=== PATIENT | female | born 1955 | race Caucasian/White ===

== ENCOUNTER 2016-12-08 16:42 | Emergency (ER) | payer OTHER, MEDICAID ==
[~2016-12-08] VITALS: Ht 167.6 cm; Wt 90.0 kg
[~2016-12-08 16:42] MED LIST: ALBU8.5H3 IH; AMLO-512 PO; ASPI81 PO; CARV6 PO; FURO20 PO; INSLAN SQ; INSU100C3 SQ; ISOS60TA4 PO; LEVO100T4 PO; LISI20TA PO; METF500T4 PO; MORP15 PO; MULT-1238 PO; NITR2.5 PO; POTA8TAB4 PO; PROM25 PO; RANO500T3 PO; SIMV40 PO; TICA90TA PO; VITAD1000 PO
[2016-12-08 17:20] LABS: BASOPHILS % (AUTO) 1.2 % (0.0-2.0); EOSINOPHILS % (AUTO) 5.8 % (1.0-6.0); HEMATOCRIT 27.1 % (36-46); HEMOGLOBIN 8.6 g/dL (12.0-16.0); LYMPHOCYTES # (AUTO) 1.5 K/uL (1.0-4.8); LYMPHOCYTES % (AUTO) 24.7 % (22.0-44.0); MEAN CORPUSCULAR HEMOGLOBIN 26.7 pg (26.0-34.0); MEAN CORPUSCULAR HGB CONC 31.6 G/dL (31.0-37.0); MEAN CORPUSCULAR VOLUME 85 fL (80-100); MONOCYTES # (AUTO) 0.3 K/uL (0.1-1.0); MONOCYTES % (AUTO) 5.8 % (2.0-9.0); NEUTROPHILS # (AUTO) 3.7 K/uL (1.8-7.7); NEUTROPHILS % (AUTO) 62.5 % (40.0-70.0); PLATELET COUNT (AUTO) 284 K/uL (150-450); RBC MORPHOLOGY COMMENT ABNORMAL RBC MORPH; RED BLOOD CELL COUNT(AUTO) 3.21 MIL/uL (4.00-5.20); RED CELL DISTRIBUTION WIDTH 17.5 % (11.5-14.5)
[2016-12-08 17:33] LABS: ANION GAP 5 mmol/L (8-16); CALCIUM, TOTAL 8.5 mg/dL (8.8-10.5); CARBON DIOXIDE 29 mmol/L (22-29); CHLORIDE 101 mmol/L (98-107); CREATININE 1.12 mg/dL (0.60-1.30); GLOMERULAR FILTR. RATE CALC 49 mL/min (>60); POTASSIUM 3.8 mmol/L (3.5-5.1); SODIUM SERUM 135 mmol/L (136-145); UREA NITROGEN, BLOOD 14 mg/dL (7-18)
[2016-12-08 17:39] LABS: ALANINE AMINOTRANSFERASE 7 U/L (12-78); ALBUMIN 2.7 g/dL (3.4-5.0); ASPARTATE AMINOTRANSFERASE 10 U/L (15-37); BILIRUBIN,TOTAL 0.2 mg/dL (0.1-1.0); CREATINE KINASE, TOTAL 49 U/L (26-192); TOTAL PROTEIN, SERUM 6.2 g/dL (6.4-8.2)
[2016-12-08 17:42] LABS: B-TYPE NATRIURETIC PEPTIDE 318 pg/mL (0-100)
[2016-12-08] MEDS: KETOROLAC TROMETHAMINE 30 MG/ML VIAL IVP ONE ×2 (18:38→18:41)
[2016-12-08] MEDS ORDERED: INSULIN REGULAR, HUMAN 100 UNITS/ML IVP ONE (18:45)
[2016-12-08] MEDS ORDERED: SODIUM CHLORIDE 0.9% 1,000 ML IV ONE (18:45)
[2016-12-08] MEDS ORDERED: SODIUM CHLORIDE 0.9% 500 ML IV ONE (19:15)
[2016-12-08 19:22] LABS: GLUCOSE,POINT OF CARE 235 MG/DL (70-110)
[2016-12-08 19:54] VITALS: BP 132/78
== END 2016-12-08 19:58 | disposition home or self-care (01) ==
LOC: EMS 16:44
DX: D64.9 Anemia, unspecified (principal); E11.65 Type 2 diabetes mellitus with hyperglycemia; I11.0 Hypertensive heart disease with heart failure; I50.9 Heart failure, unspecified; I25.119 Atherosclerotic heart disease of native coronary artery with unspecified angina pectoris; E78.00 Pure hypercholesterolemia, unspecified; I25.2 Old myocardial infarction; E11.29 Type 2 diabetes mellitus with other diabetic kidney complication; N28.9 Disorder of kidney and ureter, unspecified; F12.90 Cannabis use, unspecified, uncomplicated; Z95.1 Presence of aortocoronary bypass graft; Z95.0 Presence of cardiac pacemaker; Z91.041 Radiographic dye allergy status; Z91.018 Allergy to other foods; Z88.8 Allergy status to other drugs, medicaments and biological substances; Z79.82 Long term (current) use of aspirin; Z79.4 Long term (current) use of insulin
CPT/HCPCS: 36415; 71010; 80053; 82550; 82962; 83880; 84484; 85025; 93005; 96361; 96374; 99285; J1815; J1885; J7030; J7040

== ENCOUNTER 2016-12-13 07:01 | Inpatient (IN) | payer MEDICAID, MEDICARE, OTHER ==
[~2016-12-13] VITALS: Ht 167.6 cm; Wt 83.4 kg
[~2016-12-13 07:01] MED LIST changes: +SIMV-261 PO; -SIMV40 PO
[2016-12-13] MEDS ORDERED: APIX2.5T PO (07:14)
[2016-12-13] MEDS ORDERED: ONDANSETRON HCL 4 MG/2 ML VIAL IVP ONE (07:30)
[2016-12-13] MEDS ORDERED: SODIUM CHLORIDE 0.9% 1,000 ML IV ONE (07:30)
[2016-12-13 07:48] LABS: BASOPHILS % (AUTO) 0.6 % (0.0-2.0); EOSINOPHILS % (AUTO) 4.8 % (1.0-6.0); HEMATOCRIT 31.3 % (36-46); LYMPHOCYTES # (AUTO) 1.5 K/uL (1.0-4.8); LYMPHOCYTES % (AUTO) 16.8 % (22.0-44.0); MEAN CORPUSCULAR HEMOGLOBIN 26.6 pg (26.0-34.0); MEAN CORPUSCULAR HGB CONC 31.9 G/dL (31.0-37.0); MEAN CORPUSCULAR VOLUME 83 fL (80-100); MONOCYTES # (AUTO) 0.5 K/uL (0.1-1.0); MONOCYTES % (AUTO) 5.4 % (2.0-9.0); NEUTROPHILS # (AUTO) 6.3 K/uL (1.8-7.7); NEUTROPHILS % (AUTO) 72.4 % (40.0-70.0); PLATELET COUNT (AUTO) 325 K/uL (150-450); RED BLOOD CELL COUNT(AUTO) 3.75 MIL/uL (4.00-5.20); WHITE BLOOD COUNT (AUTO) 8.7 K/uL (4.5-11.0)
[2016-12-13 07:58] LABS: PROTHROMBIN TIME 10.7 SEC (9.4-11.6)
[2016-12-13 08:03] LABS: ALANINE AMINOTRANSFERASE 11 U/L (12-78); ALBUMIN 2.8 g/dL (3.4-5.0); ANION GAP 9 mmol/L (8-16); ASPARTATE AMINOTRANSFERASE < 5 U/L (15-37); BILIRUBIN,TOTAL 0.2 mg/dL (0.1-1.0); CALCIUM, TOTAL 8.6 mg/dL (8.8-10.5); CARBON DIOXIDE 26 mmol/L (22-29); CHLORIDE 100 mmol/L (98-107); GLOMERULAR FILTR. RATE CALC 56 mL/min (>60); POTASSIUM 3.2 mmol/L (3.5-5.1); SODIUM SERUM 135 mmol/L (136-145); TOTAL PROTEIN, SERUM 6.6 g/dL (6.4-8.2); UREA NITROGEN, BLOOD 17 mg/dL (7-18)
[2016-12-13 08:27] LABS: GLUCOSE,POINT OF CARE 388 MG/DL (70-110)
[2016-12-13] MEDS ORDERED: INSULIN DETEMIR 100 UNITS/ML SQ ONE (08:30)
[2016-12-13] MEDS ORDERED: MAG HYDROX/AL HYDROX/SIMETH ES 30 ML SUSPENSION UDCUP PO ONE (08:45)
[2016-12-13] MEDS ORDERED: PANTOPRAZOLE SODIUM 40 MG/VIAL IVP ONE (08:45)
[2016-12-13] MEDS ORDERED: MORPHINE SULFATE 4 MG/ML SYRINGE IVP ONE (08:45)
[2016-12-13 09:35] LABS: APPEARANCE,URINE CLEAR (CLEAR); GLUCOSE, URINE (UA) >=1000 mg/dL (NEGATIVE); KETONES,URINE NEGATIVE (NEGATIVE); LEUKOCYTE ESTERASE ,URINE NEGATIVE (NEGATIVE); OCCULT BLOOD,URINE SMALL (NEGATIVE); PROTEIN,URINE SEE CONFIRM (NEGATIVE)
[2016-12-13 09:39] LABS: ADD UA MICROSCOPIC YES
[2016-12-13 09:41] LABS: SULFOSALICYLIC ACID,URINE 4+ (Negative)
[2016-12-13 09:42] LABS: RENAL EPITHELIAL CELLS,URINE Few /LPF (None Seen); SQUAMOUS EPITHELIAL CELL,UR Few /LPF (None Seen)
[2016-12-13] MEDS ORDERED: CefTRIAXone 1 GM/DEXTROSE 50 ML IV ONE (11:00)
[2016-12-13] MEDS ORDERED: PROMETHAZINE HCL 25 MG/ML VIAL IM ONE (11:15)
[2016-12-13 13:16] LABS: GLUCOSE,POINT OF CARE 269 MG/DL (70-110)
[2016-12-13] MEDS ORDERED: POTASSIUM CHLORIDE 20 MEQ ER TABLET PO ONE (13:45)
[2016-12-13 14:15] VITALS: BP 179/85
[2016-12-13] MEDS ORDERED: NITROGLYCERIN 2.5 MG PO PRN ×2 (14:15→21:30)
[2016-12-13] MEDS ORDERED: DEXTROSE 50%-WATER 25 GM/50 ML SYRINGE IVP PRN (14:30)
[2016-12-13] MEDS: CHOLECALCIFEROL (VIT D3) 1,000 UNITS TABLET PO SCH (15:03)
[2016-12-13] MEDS: CARVEDILOL 6.25 MG TABLET PO SCH (15:03)
[2016-12-13] MEDS: ASPIRIN 81 MG CHEWABLE TABLET PO SCH (15:03)
[2016-12-13] MEDS: FUROSEMIDE 20 MG TABLET PO SCH (15:03)
[2016-12-13] MEDS: ISOSORBIDE MONONITRATE 60 MG ER TABLET PO SCH (15:03)
[2016-12-13] MEDS: MORPHINE SULFATE 15 MG ER TABLET PO SCH ×2 (15:04→22:50)
[2016-12-13] MEDS: POTASSIUM CHLORIDE 8 MEQ ER TABLET PO SCH (15:04)
[2016-12-13 15:35] VITALS: BP 178/73
[2016-12-13] MEDS: MORPHINE SULFATE 2 MG/ML SYRINGE IVP PRN (16:14)
[2016-12-13] MEDS: RANOLAZINE 500 MG SR TABLET PO SCH ×2 (16:28→22:50)
[2016-12-13] MEDS ORDERED: 0.9% SODIUM CHLORIDE 10 ML SYRINGE IVP PRN (16:45)
[2016-12-13] MEDS: MetFORMIN HCL 500 MG TABLET PO SCH (17:40)
[2016-12-13 17:41] LABS: GLUCOSE COMMENT 1 Received Meds; GLUCOSE,POINT OF CARE 276 MG/DL (70-110)
[2016-12-13] MEDS: INSULIN ASPART 100 UNITS/ML SQ PRN ×2 (17:41→20:40)
[2016-12-13] MEDS: ALBUTEROL SULFATE HFA 90 MCG/PUFF 8 GM INHALER IH SCH ×2 (17:42→22:50)
[2016-12-13 19:35] VITALS: BP 123/55
[2016-12-13] MEDS: SIMVASTATIN 40 MG TABLET PO SCH (20:40)
[2016-12-13] MEDS: APIXABAN 2.5 MG TABLET PO SCH (20:40)
[2016-12-13 23:05] VITALS: BP 111/74
[2016-12-14 02:06] LABS: GLUCOSE COMMENT 1 Received Meds; GLUCOSE,POINT OF CARE 248 MG/DL (70-110)
[2016-12-14 05:07] VITALS: BP 127/67
[2016-12-14] MEDS: INSULIN ASPART 100 UNITS/ML SQ PRN ×3 (05:50→21:56)
[2016-12-14] MEDS: ALBUTEROL SULFATE HFA 90 MCG/PUFF 8 GM INHALER IH SCH ×3 (05:51→18:00)
[2016-12-14] MEDS: LEVOTHYROXINE SODIUM 100 MCG TABLET PO SCH (06:30)
[2016-12-14] MEDS: MORPHINE SULFATE 15 MG ER TABLET PO SCH ×2 (07:54→20:56)
[2016-12-14] MEDS: PROMETHAZINE HCL 25 MG TABLET PO PRN ×2 (07:54→19:05)
[2016-12-14 08:03] VITALS: BP 140/70
[2016-12-14 08:16] LABS: GLUCOSE COMMENT 1 Received Meds; GLUCOSE,POINT OF CARE 211 MG/DL (70-110)
[2016-12-14] MEDS: MORPHINE SULFATE 2 MG/ML SYRINGE IVP PRN ×3 (09:54→19:05)
[2016-12-14] MEDS: MetFORMIN HCL 500 MG TABLET PO SCH ×2 (10:34→18:00)
[2016-12-14] MEDS: MULTIVITAMINS, THERAPEUTIC TABLET PO SCH (10:34)
[2016-12-14] MEDS: ISOSORBIDE MONONITRATE 60 MG ER TABLET PO SCH (10:34)
[2016-12-14] MEDS: ASPIRIN 81 MG CHEWABLE TABLET PO SCH (10:34)
[2016-12-14] MEDS: FUROSEMIDE 20 MG TABLET PO SCH (10:34)
[2016-12-14] MEDS: CARVEDILOL 6.25 MG TABLET PO SCH (10:34)
[2016-12-14] MEDS: POTASSIUM CHLORIDE 8 MEQ ER TABLET PO SCH (10:34)
[2016-12-14] MEDS: RANOLAZINE 500 MG SR TABLET PO SCH ×2 (10:35→20:56)
[2016-12-14] MEDS: APIXABAN 2.5 MG TABLET PO SCH (10:36)
[2016-12-14] MEDS: CHOLECALCIFEROL (VIT D3) 1,000 UNITS TABLET PO SCH (10:37)
[2016-12-14 11:29] LABS: BASOPHILS % (AUTO) 0.4 % (0.0-2.0); EOSINOPHILS % (AUTO) 6.1 % (1.0-6.0); HEMATOCRIT 30.8 % (36-46); HEMOGLOBIN 9.7 g/dL (12.0-16.0); LYMPHOCYTES # (AUTO) 1.9 K/uL (1.0-4.8); LYMPHOCYTES % (AUTO) 21.6 % (22.0-44.0); MEAN CORPUSCULAR HEMOGLOBIN 26.5 pg (26.0-34.0); MEAN CORPUSCULAR HGB CONC 31.5 G/dL (31.0-37.0); MEAN CORPUSCULAR VOLUME 84 fL (80-100); MONOCYTES # (AUTO) 0.4 K/uL (0.1-1.0); NEUTROPHILS # (AUTO) 5.8 K/uL (1.8-7.7); NEUTROPHILS % (AUTO) 66.9 % (40.0-70.0); PLATELET COUNT (AUTO) 306 K/uL (150-450); RED BLOOD CELL COUNT(AUTO) 3.65 MIL/uL (4.00-5.20); RED CELL DISTRIBUTION WIDTH 17.3 % (11.5-14.5); WHITE BLOOD COUNT (AUTO) 8.6 K/uL (4.5-11.0)
[2016-12-14 11:39] VITALS: BP 161/79
[2016-12-14 11:41] LABS: ALBUMIN 2.5 g/dL (3.4-5.0); BILIRUBIN,TOTAL 0.3 mg/dL (0.1-1.0); CALCIUM, TOTAL 8.4 mg/dL (8.8-10.5); CREATININE 0.95 mg/dL (0.60-1.30); POTASSIUM 3.8 mmol/L (3.5-5.1); TOTAL PROTEIN, SERUM 6.1 g/dL (6.4-8.2)
[2016-12-14 14:17] LABS: GLUCOSE COMMENT 1 Received Meds; GLUCOSE,POINT OF CARE 247 MG/DL (70-110)
[2016-12-14] MEDS: METOCLOPRAMIDE HCL 10 MG TABLET PO SCH ×2 (16:00→20:57)
[2016-12-14 16:14] VITALS: BP 143/60
[2016-12-14 17:37] LABS: GLUCOSE COMMENT 1 Received Meds; GLUCOSE,POINT OF CARE 192 MG/DL (70-110)
[2016-12-14] MEDS: SIMVASTATIN 40 MG TABLET PO SCH (20:57)
[2016-12-14 23:47] VITALS: BP 138/62
[2016-12-15] MEDS: MORPHINE SULFATE 2 MG/ML SYRINGE IVP PRN ×4 (02:28→17:31)
[2016-12-15 04:46] VITALS: BP 123/73
[2016-12-15 05:07] LABS: GLUCOSE COMMENT 1 Post Meal; GLUCOSE,POINT OF CARE 273 MG/DL (70-110)
[2016-12-15] MEDS: ALBUTEROL SULFATE HFA 90 MCG/PUFF 8 GM INHALER IH SCH ×4 (06:00→17:32)
[2016-12-15 06:17] LABS: BASOPHILS % (AUTO) 0.7 % (0.0-2.0); EOSINOPHILS % (AUTO) 6.7 % (1.0-6.0); HEMATOCRIT 27.3 % (36-46); HEMOGLOBIN 8.5 g/dL (12.0-16.0); LYMPHOCYTES % (AUTO) 28.5 % (22.0-44.0); MEAN CORPUSCULAR HEMOGLOBIN 26.2 pg (26.0-34.0); MEAN CORPUSCULAR HGB CONC 31.2 G/dL (31.0-37.0); MEAN CORPUSCULAR VOLUME 84 fL (80-100); MONOCYTES # (AUTO) 0.5 K/uL (0.1-1.0); MONOCYTES % (AUTO) 6.8 % (2.0-9.0); NEUTROPHILS % (AUTO) 57.3 % (40.0-70.0); PLATELET COUNT (AUTO) 264 K/uL (150-450); RED BLOOD CELL COUNT(AUTO) 3.24 MIL/uL (4.00-5.20); RED CELL DISTRIBUTION WIDTH 17.1 % (11.5-14.5)
[2016-12-15 06:31] LABS: HEMOGLOBIN A1C 10.1 % (4.5-6.2)
[2016-12-15] MEDS: LEVOTHYROXINE SODIUM 100 MCG TABLET PO SCH (06:49)
[2016-12-15] MEDS: INSULIN ASPART 100 UNITS/ML SQ PRN ×2 (06:51→21:19)
[2016-12-15 07:02] LABS: ALBUMIN 2.2 g/dL (3.4-5.0); BILIRUBIN,TOTAL 0.2 mg/dL (0.1-1.0); CALCIUM, TOTAL 8.5 mg/dL (8.8-10.5); CHOL/HDL RATIO 4.9 (3.9-5.7); CREATININE 1.06 mg/dL (0.60-1.30); MAGNESIUM 1.5 mg/dL (1.80-2.40); POTASSIUM 3.8 mmol/L (3.5-5.1); TOTAL PROTEIN, SERUM 5.4 g/dL (6.4-8.2)
[2016-12-15 07:26] LABS: GLUCOSE COMMENT 1 Received Meds; GLUCOSE,POINT OF CARE 208 MG/DL (70-110)
[2016-12-15 08:04] VITALS: BP 122/88
[2016-12-15] MEDS: ASPIRIN 81 MG CHEWABLE TABLET PO SCH (08:14)
[2016-12-15] MEDS: RANOLAZINE 500 MG SR TABLET PO SCH ×2 (08:14→21:12)
[2016-12-15] MEDS: METOCLOPRAMIDE HCL 10 MG TABLET PO SCH ×3 (08:14→21:12)
[2016-12-15] MEDS: FUROSEMIDE 20 MG TABLET PO SCH (08:14)
[2016-12-15] MEDS: ISOSORBIDE MONONITRATE 60 MG ER TABLET PO SCH (08:14)
[2016-12-15] MEDS: CHOLECALCIFEROL (VIT D3) 1,000 UNITS TABLET PO SCH (08:14)
[2016-12-15] MEDS: MetFORMIN HCL 500 MG TABLET PO SCH ×2 (08:14→16:36)
[2016-12-15] MEDS: MULTIVITAMINS, THERAPEUTIC TABLET PO SCH (08:15)
[2016-12-15] MEDS: POTASSIUM CHLORIDE 8 MEQ ER TABLET PO SCH (08:15)
[2016-12-15] MEDS: CARVEDILOL 6.25 MG TABLET PO SCH (08:17)
[2016-12-15 08:27] LABS: RBC MORPHOLOGY COMMENT ABNORMAL RBC MORPH
[2016-12-15] MEDS: MORPHINE SULFATE 15 MG ER TABLET PO SCH ×2 (09:53→21:13)
[2016-12-15 11:26] VITALS: BP 141/63
[2016-12-15] MEDS ORDERED: MAGNESIUM SULFATE 3 GM in DEXTROSE 5%-WATER 100 ML IV ONE (13:45)
[2016-12-15] MEDS ORDERED: SODIUM CHLORIDE 0.9% 250 ML IV ONE (14:33)
[2016-12-15 15:34] VITALS: BP 104/45
[2016-12-15 16:42] LABS: GLUCOSE COMMENT 1 Received Meds; GLUCOSE,POINT OF CARE 351 MG/DL (70-110)
[2016-12-15 19:15] VITALS: BP 107/54
[2016-12-15] MEDS: SIMVASTATIN 40 MG TABLET PO SCH (21:12)
[2016-12-15 23:14] VITALS: BP 112/57
[2016-12-16 01:52] LABS: GLUCOSE COMMENT 1 Received Meds; GLUCOSE,POINT OF CARE 164 MG/DL (70-110)
[2016-12-16] MEDS: MORPHINE SULFATE 2 MG/ML SYRINGE IVP PRN ×2 (02:33→06:33)
[2016-12-16 04:30] VITALS: BP 150/69
[2016-12-16] MEDS: ALBUTEROL SULFATE HFA 90 MCG/PUFF 8 GM INHALER IH SCH ×3 (06:00→08:14)
[2016-12-16 06:07] LABS: GLUCOSE,POINT OF CARE 156 MG/DL (70-110)
[2016-12-16] MEDS: LEVOTHYROXINE SODIUM 100 MCG TABLET PO SCH (06:10)
[2016-12-16] MEDS: INSULIN ASPART 100 UNITS/ML SQ PRN (06:14)
[2016-12-16 07:25] VITALS: BP 157/59
[2016-12-16] MEDS: MetFORMIN HCL 500 MG TABLET PO SCH (08:12)
[2016-12-16] MEDS: RANOLAZINE 500 MG SR TABLET PO SCH (09:20)
[2016-12-16] MEDS: CARVEDILOL 6.25 MG TABLET PO SCH (09:20)
[2016-12-16] MEDS: MULTIVITAMINS, THERAPEUTIC TABLET PO SCH (09:21)
[2016-12-16] MEDS: ASPIRIN 81 MG CHEWABLE TABLET PO SCH (09:21)
[2016-12-16] MEDS: CHOLECALCIFEROL (VIT D3) 1,000 UNITS TABLET PO SCH (09:21)
[2016-12-16] MEDS: POTASSIUM CHLORIDE 8 MEQ ER TABLET PO SCH (09:21)
[2016-12-16] MEDS: MORPHINE SULFATE 15 MG ER TABLET PO SCH (09:21)
[2016-12-16] MEDS: ISOSORBIDE MONONITRATE 60 MG ER TABLET PO SCH (09:21)
[2016-12-16] MEDS: FUROSEMIDE 20 MG TABLET PO SCH (09:21)
[2016-12-16] MEDS: METOCLOPRAMIDE HCL 10 MG TABLET PO SCH (09:21)
[2016-12-17] MEDS ORDERED: ROSUVASTATIN CALCIUM 20 MG TABLET PO SCH (09:00)
== END 2016-12-16 13:00 | disposition left against medical advice (07) | DRG 206 ==
LOC: EMS 07:03 → 6N 12:50 → 3EI 12:50 → 6N 13:54
PROVIDERS: ADMIT Family Medicine; ATTEND Family Medicine
DX: M94.0 Chondrocostal junction syndrome [Tietze] (principal); E44.1 Mild protein-calorie malnutrition; I50.32 Chronic diastolic (congestive) heart failure; F11.20 Opioid dependence, uncomplicated; E11.43 Type 2 diabetes mellitus with diabetic autonomic (poly)neuropathy; Z86.73 Personal history of transient ischemic attack (TIA), and cerebral infarction without residual deficits; K31.84 Gastroparesis; I11.0 Hypertensive heart disease with heart failure; I25.10 Atherosclerotic heart disease of native coronary artery without angina pectoris; J44.9 Chronic obstructive pulmonary disease, unspecified; I25.2 Old myocardial infarction; I25.5 Ischemic cardiomyopathy; D64.9 Anemia, unspecified; E87.6 Hypokalemia; E11.65 Type 2 diabetes mellitus with hyperglycemia; E78.5 Hyperlipidemia, unspecified; F43.10 Post-traumatic stress disorder, unspecified; E78.00 Pure hypercholesterolemia, unspecified; K21.9 Gastro-esophageal reflux disease without esophagitis; K27.9 Peptic ulcer, site unspecified, unspecified as acute or chronic, without hemorrhage or perforation; F12.90 Cannabis use, unspecified, uncomplicated; Z91.010 Allergy to peanuts; Z76.5 Malingerer [conscious simulation]; Z91.041 Radiographic dye allergy status; Z91.018 Allergy to other foods; Z88.8 Allergy status to other drugs, medicaments and biological substances; Z79.899 Other long term (current) drug therapy; Z79.01 Long term (current) use of anticoagulants; Z79.82 Long term (current) use of aspirin; Z79.84 Long term (current) use of oral hypoglycemic drugs; Z79.4 Long term (current) use of insulin; Z68.29 Body mass index [BMI] 29.0-29.9, adult; Z71.51 Drug abuse counseling and surveillance of drug abuser; Z98.890 Other specified postprocedural states; Z95.1 Presence of aortocoronary bypass graft; Z95.810 Presence of automatic (implantable) cardiac defibrillator; Z95.5 Presence of coronary angioplasty implant and graft; Z87.11 Personal history of peptic ulcer disease
CPT/HCPCS: 76700; 82962; 83036; 83735; 87081; 87086; 93005; 93306; 96361; 96365; 96366; 96372; 96375; 99285; C9113; J0696; J2270; J2405; J2550; J3475; J3535; J7030; J7050; J7060

== ENCOUNTER 2016-12-28 10:09 | Emergency (ER) | payer OTHER ==
[~2016-12-28] VITALS: Ht 175.3 cm; Wt 72.7 kg
[~2016-12-28 10:09] MED LIST changes: -AMLO-512 PO; +APIX2.5T PO; -LISI20TA PO; -TICA90TA PO
[2016-12-28 10:27] LABS: GLUCOSE,POINT OF CARE 302 MG/DL (70-110)
[2016-12-28] MEDS ORDERED: SODIUM CHLORIDE 0.9% 1,000 ML IV ONE ×2 (10:45→13:15)
[2016-12-28] MEDS ORDERED: KETOROLAC TROMETHAMINE 30 MG/ML VIAL IVP ONE (10:45)
[2016-12-28] MEDS ORDERED: ONDANSETRON HCL 4 MG/2 ML VIAL IVP ONE (10:45)
[2016-12-28 12:17] LABS: GLUCOSE,POINT OF CARE 233 MG/DL (70-110)
[2016-12-28] MEDS ORDERED: ACETAMINOPHEN 1000 MG/ISO-OSM 100 ML IV ONE (13:15)
[2016-12-28 14:58] VITALS: BP 174/80
[2016-12-28 15:07] LABS: APPEARANCE,URINE CLEAR (CLEAR); GLUCOSE, URINE (UA) 100 mg/dL (NEGATIVE); KETONES,URINE NEGATIVE (NEGATIVE); LEUKOCYTE ESTERASE ,URINE NEGATIVE (NEGATIVE); OCCULT BLOOD,URINE TRACE (NEGATIVE); PH,URINE 7.5 (5.0-8.0); PROTEIN,URINE SEE CONFIRM (NEGATIVE)
[2016-12-28 15:13] LABS: SULFOSALICYLIC ACID,URINE 4+ (Negative)
[2016-12-28 15:14] LABS: RBC,URINE 0-2 /HPF (0-2); SQUAMOUS EPITHELIAL CELL,UR Few /LPF (None Seen); WBC,URINE 0-2 /HPF (0-5)
== END 2016-12-28 15:36 | disposition home or self-care (01) ==
LOC: EMS 10:11
DX: M54.5 Low back pain (principal); E11.65 Type 2 diabetes mellitus with hyperglycemia; F32.9 Major depressive disorder, single episode, unspecified; F41.9 Anxiety disorder, unspecified; R30.0 Dysuria; J44.9 Chronic obstructive pulmonary disease, unspecified; E78.00 Pure hypercholesterolemia, unspecified; F43.10 Post-traumatic stress disorder, unspecified; F11.20 Opioid dependence, uncomplicated; I11.0 Hypertensive heart disease with heart failure; I50.9 Heart failure, unspecified; F12.90 Cannabis use, unspecified, uncomplicated; Z79.82 Long term (current) use of aspirin; Z79.4 Long term (current) use of insulin; Z91.018 Allergy to other foods; Z87.11 Personal history of peptic ulcer disease; Z88.8 Allergy status to other drugs, medicaments and biological substances; Z91.041 Radiographic dye allergy status
CPT/HCPCS: 81001; 81002; 82962; 96361; 96365; 96366; 96375; 99285; J0131; J1885; J2405

== ENCOUNTER 2017-01-13 08:56 | Emergency (ER) | payer OTHER ==
[~2017-01-13] VITALS: Ht 177.8 cm; Wt 72.7 kg
[~2017-01-13 08:56] MED LIST changes: -SIMV-261 PO; +SIMV40 PO
[2017-01-13] MEDS ORDERED: PREGABALIN 25 MG CAPSULE PO ONE (10:00)
[2017-01-13 10:23] VITALS: BP 153/83
[2017-01-13 14:54] LABS: GLUCOSE,POINT OF CARE 363 MG/DL (70-110)
== END 2017-01-13 10:26 | disposition home or self-care (01) ==
LOC: EMS 08:58
DX: Z76.0 Encounter for issue of repeat prescription (principal); J44.9 Chronic obstructive pulmonary disease, unspecified; E78.00 Pure hypercholesterolemia, unspecified; E11.9 Type 2 diabetes mellitus without complications; I11.0 Hypertensive heart disease with heart failure; I50.9 Heart failure, unspecified; I25.2 Old myocardial infarction; F12.90 Cannabis use, unspecified, uncomplicated; Z79.4 Long term (current) use of insulin; Z79.82 Long term (current) use of aspirin; Z91.018 Allergy to other foods; Z87.11 Personal history of peptic ulcer disease
CPT/HCPCS: 82962; 99283

== ENCOUNTER 2017-05-06 14:47 | Emergency (ER) | payer OTHER, MEDICAID ==
[~2017-05-06] VITALS: Ht 167.6 cm; Wt 72.7 kg
[~2017-05-06 14:47] MED LIST changes: +SIMV-261 PO; -SIMV40 PO
[2017-05-06] MEDS ORDERED: METO25 PO (15:35)
[2017-05-06 16:12] LABS: BASOPHILS % (AUTO) 0.5 % (0.0-2.0); EOSINOPHILS % (AUTO) 5.4 % (1.0-6.0); HEMATOCRIT 27.3 % (36-46); LYMPHOCYTES # (AUTO) 1.1 K/uL (1.0-4.8); LYMPHOCYTES % (AUTO) 19.6 % (22.0-44.0); MEAN CORPUSCULAR HEMOGLOBIN 28.7 pg (26.0-34.0); MEAN CORPUSCULAR HGB CONC 32.8 G/dL (31.0-37.0); MEAN CORPUSCULAR VOLUME 87 fL (80-100); MONOCYTES # (AUTO) 0.5 K/uL (0.1-1.0); MONOCYTES % (AUTO) 9.7 % (2.0-9.0); NEUTROPHILS # (AUTO) 3.5 K/uL (1.8-7.7); NEUTROPHILS % (AUTO) 64.8 % (40.0-70.0); PLATELET COUNT (AUTO) 287 K/uL (150-450); RED BLOOD CELL COUNT(AUTO) 3.12 MIL/uL (4.00-5.20); RED CELL DISTRIBUTION WIDTH 16.2 % (11.5-14.5); WHITE BLOOD COUNT (AUTO) 5.5 K/uL (4.5-11.0)
[2017-05-06] MEDS ORDERED: ONDANSETRON HCL 4 MG/2 ML VIAL IVP ONE (16:15)
[2017-05-06] MEDS ORDERED: MORPHINE SULFATE 4 MG/ML SYRINGE IVP ONE (16:15)
[2017-05-06] MEDS ORDERED: NITROGLYCERIN 2% (1 GM=INCH) PACKET TP ONE (16:15)
[2017-05-06] MEDS ORDERED: ASPIRIN 81 MG CHEWABLE TABLET PO ONE (16:15)
[2017-05-06 16:22] LABS: GLUCOSE,POINT OF CARE 281 MG/DL (70-110)
[2017-05-06 16:22] LABS: ANION GAP 6 mmol/L (8-16); CALCIUM, TOTAL 8.4 mg/dL (8.8-10.5); CARBON DIOXIDE 28 mmol/L (22-29); CHLORIDE 105 mmol/L (98-107); GLOMERULAR FILTR. RATE CALC 41 mL/min (>60); POTASSIUM 3.6 mmol/L (3.5-5.1); SODIUM SERUM 139 mmol/L (136-145); UREA NITROGEN, BLOOD 8 mg/dL (7-18)
[2017-05-06 16:30] LABS: INR 1.1 (0.9-1.1); PROTHROMBIN TIME 11.2 SEC (9.4-11.6)
[2017-05-06 16:37] LABS: B-TYPE NATRIURETIC PEPTIDE 773 pg/mL (0-100)
[2017-05-06 16:47] LABS: ALANINE AMINOTRANSFERASE 10 U/L (12-78); ASPARTATE AMINOTRANSFERASE 10 U/L (15-37); BILIRUBIN,TOTAL 0.2 mg/dL (0.1-1.0); CREATINE KINASE MB 0.9 ng/mL (0-5); CREATINE KINASE, TOTAL 96 U/L (26-192); TOTAL PROTEIN, SERUM 6.5 g/dL (6.4-8.2)
[2017-05-06] MEDS ORDERED: FUROSEMIDE 40 MG/4 ML VIAL IVP ONE (17:15)
[2017-05-06 18:00] VITALS: BP 140/80
[2017-05-06 18:27] LABS: APPEARANCE,URINE CLEAR (CLEAR); GLUCOSE, URINE (UA) 100 mg/dL (NEGATIVE); KETONES,URINE NEGATIVE (NEGATIVE); LEUKOCYTE ESTERASE ,URINE NEGATIVE (NEGATIVE); OCCULT BLOOD,URINE NEGATIVE (NEGATIVE); PROTEIN,URINE SEE CONFIRM (NEGATIVE)
[2017-05-06 18:28] LABS: ADD UA MICROSCOPIC YES
[2017-05-06 18:58] LABS: SULFOSALICYLIC ACID,URINE 3+ (Negative)
[2017-05-06 18:59] LABS: SQUAMOUS EPITHELIAL CELL,UR Few /LPF (None Seen)
[2017-05-06 19:00] LABS: RBC,URINE 0-2 /HPF (0-2)
== END 2017-05-06 18:16 | disposition home or self-care (01) ==
LOC: EMS 14:49
DX: I11.0 Hypertensive heart disease with heart failure (principal); I50.9 Heart failure, unspecified; I25.2 Old myocardial infarction; I25.10 Atherosclerotic heart disease of native coronary artery without angina pectoris; J44.9 Chronic obstructive pulmonary disease, unspecified; E78.00 Pure hypercholesterolemia, unspecified; F12.90 Cannabis use, unspecified, uncomplicated; Z98.62 Peripheral vascular angioplasty status; Z95.0 Presence of cardiac pacemaker; Z95.1 Presence of aortocoronary bypass graft; Z79.82 Long term (current) use of aspirin; Z91.041 Radiographic dye allergy status; Z91.018 Allergy to other foods; Z91.010 Allergy to peanuts; Z88.8 Allergy status to other drugs, medicaments and biological substances; Z87.442 Personal history of urinary calculi
CPT/HCPCS: 36415; 71010; 80053; 81001; 82550; 82553; 82962; 83880; 84484; 85025; 85610; 85730; 93005; 96374; 96375; 99285; J1940; J2270; J2405

== ENCOUNTER 2018-10-03 20:16 | Emergency (ER) | payer MEDICARE, OTHER ==
[~2018-10-03] VITALS: Ht 177.8 cm; Wt 107.3 kg
[~2018-10-03 20:16] MED LIST changes: +AMLO-511 PO; +CLOP75 PO; +DULO30CA2 PO; +GABA-531 PO; -INSLAN SQ; -ISOS60TA4 PO; -METF500T4 PO; +METO25 PO; -MORP15 PO; +MUPI1OIN4 NS; +PERCT PO; -POTA8TAB4 PO; -PROM25 PO; -SIMV-261 PO
[2018-10-03 21:09] LABS: GLUCOSE,POINT OF CARE 188 MG/DL (70-110)
[2018-10-03 22:10] LABS: BASOPHILS % (AUTO) 0.5 % (0.0-2.0); EOSINOPHILS % (AUTO) 3.7 % (1.0-6.0); HEMATOCRIT 23.9 % (36-46); HEMOGLOBIN 7.9 g/dL (12.0-16.0); LYMPHOCYTES # (AUTO) 1.5 K/uL (1.0-4.8); LYMPHOCYTES % (AUTO) 20.7 % (22.0-44.0); MEAN CORPUSCULAR HEMOGLOBIN 28.1 pg (26.0-34.0); MEAN CORPUSCULAR HGB CONC 33.1 G/dL (31.0-37.0); MEAN CORPUSCULAR VOLUME 85 fL (80-100); MONOCYTES # (AUTO) 0.4 K/uL (0.1-1.0); MONOCYTES % (AUTO) 5.9 % (2.0-9.0); NEUTROPHILS # (AUTO) 5.2 K/uL (1.8-7.7); NEUTROPHILS % (AUTO) 69.2 % (40.0-70.0); PLATELET COUNT (AUTO) 291 K/uL (150-450); RED BLOOD CELL COUNT(AUTO) 2.82 MIL/uL (4.00-5.20); RED CELL DISTRIBUTION WIDTH 16.8 % (11.5-14.5)
[2018-10-03 22:12] LABS: APPEARANCE,URINE CLEAR (CLEAR); BILIRUBIN,URINE NEGATIVE (NEGATIVE); GLUCOSE, URINE (UA) 100 mg/dL (NEGATIVE); KETONES,URINE NEGATIVE (NEGATIVE); LEUKOCYTE ESTERASE ,URINE NEGATIVE (NEGATIVE); NITRATE,URINE NEGATIVE (NEGATIVE); OCCULT BLOOD,URINE SMALL (NEGATIVE); PROTEIN,URINE SEE CONFIRM (NEGATIVE); UROBILINOGEN,URINE 0.2 mg/dL (<=1.0)
[2018-10-03 22:21] LABS: SULFOSALICYLIC ACID,URINE 3+ (Negative)
[2018-10-03 22:22] LABS: BACTERIA,URINE Rare /HPF (None Seen); SQUAMOUS EPITHELIAL CELL,UR Few /LPF (None Seen); WBC,URINE 0-2 /HPF (0-5)
[2018-10-03 22:23] LABS: CALCIUM, TOTAL 8.5 mg/dL (8.8-10.5); CREATININE 1.45 mg/dL (0.60-1.30); POTASSIUM 4.8 mmol/L (3.5-5.1)
[2018-10-03 22:29] LABS: ALBUMIN 2.3 g/dL (3.4-5.0); BILIRUBIN,TOTAL 0.2 mg/dL (0.1-1.0); TOTAL PROTEIN, SERUM 6.3 g/dL (6.4-8.2)
[2018-10-04 02:18] VITALS: BP 140/80
== END 2018-10-04 02:56 | disposition home or self-care (01) ==
LOC: EMS 20:17
DX: I20.8 Other forms of angina pectoris (principal); I11.0 Hypertensive heart disease with heart failure; I50.9 Heart failure, unspecified; I25.10 Atherosclerotic heart disease of native coronary artery without angina pectoris; J44.9 Chronic obstructive pulmonary disease, unspecified; E11.9 Type 2 diabetes mellitus without complications; E78.00 Pure hypercholesterolemia, unspecified; I25.2 Old myocardial infarction; F12.90 Cannabis use, unspecified, uncomplicated; Z86.73 Personal history of transient ischemic attack (TIA), and cerebral infarction without residual deficits; Z95.0 Presence of cardiac pacemaker; Z95.1 Presence of aortocoronary bypass graft; Z79.4 Long term (current) use of insulin; Z79.899 Other long term (current) drug therapy; Z79.82 Long term (current) use of aspirin; Z91.041 Radiographic dye allergy status; Z91.018 Allergy to other foods; Z91.010 Allergy to peanuts; Z88.8 Allergy status to other drugs, medicaments and biological substances
CPT/HCPCS: 93005

== ENCOUNTER 2020-04-03 02:11 | Inpatient (IN) | payer MEDICARE, OTHER ==
[~2020-04-03] VITALS: Ht 182.9 cm; Wt 102.0 kg
[~2020-04-03 02:11] MED LIST changes: +AMLO-257 PO; -AMLO-511 PO; +ASPI-728 PO; -ASPI81 PO; +CHOL100018 PO; -CLOP75 PO; +CLOP75TA3 PO; -DULO30CA2 PO; +DULO30CA96 PO; +GABA-1181 PO; -GABA-531 PO; -NITR2.5 PO; +NITR2.5C16 PO; -VITAD1000 PO
[2020-04-03] MEDS ORDERED: MORPHINE SULFATE 4 MG/ML SYRINGE IVP ONE (03:00)
[2020-04-03 04:17] LABS: CALCIUM, TOTAL 8.8 mg/dL (8.8-10.5); CREATININE 2.72 mg/dL (0.60-1.30); POTASSIUM 5.5 mmol/L (3.5-5.1)
[2020-04-03 04:22] LABS: D-DIMER 2.69 mg/L FEU (0.00-0.50); INR 1.1 (0.9-1.1); PROTHROMBIN TIME 11.6 SEC (9.4-11.6)
[2020-04-03 04:23] LABS: ALBUMIN 2.7 g/dL (3.4-5.0); BASOPHILS % (AUTO) 0.8 % (0.0-2.0); BILIRUBIN,TOTAL 0.2 mg/dL (0.1-1.0); EOSINOPHILS % (AUTO) 11.3 % (1.0-6.0); HEMOGLOBIN 7.7 g/dL (12.0-16.0); LYMPHOCYTES # (AUTO) 1.1 K/uL (1.0-4.8); LYMPHOCYTES % (AUTO) 16.7 % (22.0-44.0); MEAN CORPUSCULAR HEMOGLOBIN 27.1 pg (26.0-34.0); MEAN CORPUSCULAR HGB CONC 30.9 G/dL (31.0-37.0); MEAN CORPUSCULAR VOLUME 88 fL (80-100); MONOCYTES # (AUTO) 0.5 K/uL (0.1-1.0); MONOCYTES % (AUTO) 6.6 % (2.0-9.0); NEUTROPHILS # (AUTO) 4.4 K/uL (1.8-7.7); NEUTROPHILS % (AUTO) 64.6 % (40.0-70.0); PLATELET COUNT (AUTO) 208 K/uL (150-450); RED BLOOD CELL COUNT(AUTO) 2.84 MIL/uL (4.00-5.20); RED CELL DISTRIBUTION WIDTH 19.6 % (11.5-14.5); TOTAL PROTEIN, SERUM 7.3 g/dL (6.4-8.2)
[2020-04-03] MEDS ORDERED: ACETAMINOPHEN 325 MG TABLET PO PRN ×2 (04:45→08:45)
[2020-04-03] MEDS ORDERED: HYDROCODONE/ACETAMINOPHEN 10-325 MG TABLET PO ONE (04:45)
[2020-04-03] MEDS ORDERED: FUROSEMIDE 40 MG/4 ML VIAL IVP ONE (04:45)
[2020-04-03] MEDS ORDERED: ONDANSETRON HCL 4 MG/2 ML VIAL IVP PRN (04:45)
[2020-04-03 06:01] VITALS: BP 172/20
[2020-04-03 07:27] VITALS: BP 137/58
[2020-04-03] MEDS ORDERED: PENTETATE DTPA TC99M/MCL ISOTOPE 1 EA INJ INJ ONE (08:15)
[2020-04-03] MEDS ORDERED: MAA ALBUMIN AGGREGATED TC99M/UD<10MCL ISOTOPE 1 EA INJ INJ ONE (08:40)
[2020-04-03] MEDS ORDERED: OxyCODONE HCL/ACETAMINOPHEN 5-325 MG TABLET PO PRN (08:45)
[2020-04-03] MEDS ORDERED: DEXTROSE 50%-WATER 25 GM/50 ML SYRINGE IVP PRN (08:45)
[2020-04-03] MEDS ORDERED: APIXABAN 2.5 MG TABLET PO SCH (09:00)
[2020-04-03] MEDS: FUROSEMIDE 40 MG TABLET PO SCH (10:04)
[2020-04-03] MEDS: CLOPIDOGREL BISULFATE 75 MG TABLET PO SCH (10:04)
[2020-04-03] MEDS: ASPIRIN 81 MG CHEWABLE TABLET PO SCH (10:04)
[2020-04-03] MEDS: FAMOTIDINE 20 MG TABLET PO SCH (10:04)
[2020-04-03] MEDS: CARVEDILOL 6.25 MG TABLET PO SCH ×2 (10:04→21:10)
[2020-04-03] MEDS: DOCUSATE SODIUM 100 MG CAPSULE PO SCH ×2 (10:04→21:00)
[2020-04-03] MEDS: MORPHINE SULFATE 2 MG/ML SYRINGE IVP PRN ×3 (10:05→20:55)
[2020-04-03 12:05] VITALS: BP 145/63
[2020-04-03 17:00] VITALS: BP 139/61
[2020-04-03 18:06] LABS: GLUCOMETER DEV NAME(LOC) 5N.3; GLUCOSE,POINT OF CARE 165 MG/DL (70-110)
[2020-04-03 20:00] VITALS: BP 139/51
[2020-04-03] MEDS: HEPARIN SODIUM,PORCINE 5,000 UNITS/ML VIAL SQ SCH (21:00)
[2020-04-03] MEDS: ATORVASTATIN CALCIUM 20 MG TABLET PO SCH (21:10)
[2020-04-03] MEDS: INSULIN LISPRO 100 UNITS/ML SQ PRN (21:11)
[2020-04-03] MEDS ORDERED: SODIUM POLYSTYRENE SULFONATE 15 GM/60 ML SUSPENSION BOTTLE PO ONE (21:30)
[2020-04-03 23:55] VITALS: BP 152/62
[2020-04-04 00:08] LABS: GLUCOMETER DEV NAME(LOC) 5S.2A; GLUCOSE,POINT OF CARE 142 MG/DL (70-110)
[2020-04-04] MEDS: ALBUTEROL SULFATE 2.5 MG/0.5 ML NEB SOLUTION NEB PRN (00:11)
[2020-04-04] MEDS: IPRATROPIUM BROMIDE 0.5 MG/2.5 ML NEB SOLUTION NEB PRN (00:11)
[2020-04-04] MEDS: MORPHINE SULFATE 2 MG/ML SYRINGE IVP PRN ×5 (01:04→20:47)
[2020-04-04 04:14] VITALS: BP 158/58
[2020-04-04] MEDS: INSULIN LISPRO 100 UNITS/ML SQ PRN ×2 (05:53→20:51)
[2020-04-04 06:11] LABS: GLUCOMETER DEV NAME(LOC) 5S.2A; GLUCOSE,POINT OF CARE 190 MG/DL (70-110)
[2020-04-04 06:52] LABS: EOSINOPHILS % (AUTO) 10.8 % (1.0-6.0); HEMATOCRIT 24.2 % (36-46); HEMOGLOBIN 7.6 g/dL (12.0-16.0); LYMPHOCYTES # (AUTO) 0.9 K/uL (1.0-4.8); LYMPHOCYTES % (AUTO) 15.9 % (22.0-44.0); MEAN CORPUSCULAR HEMOGLOBIN 27.8 pg (26.0-34.0); MEAN CORPUSCULAR HGB CONC 31.3 G/dL (31.0-37.0); MEAN CORPUSCULAR VOLUME 89 fL (80-100); MONOCYTES # (AUTO) 0.4 K/uL (0.1-1.0); MONOCYTES % (AUTO) 6.4 % (2.0-9.0); NEUTROPHILS # (AUTO) 3.9 K/uL (1.8-7.7); NEUTROPHILS % (AUTO) 64.9 % (40.0-70.0); PLATELET COUNT (AUTO) 208 K/uL (150-450); RED BLOOD CELL COUNT(AUTO) 2.72 MIL/uL (4.00-5.20); RED CELL DISTRIBUTION WIDTH 20.8 % (11.5-14.5)
[2020-04-04 07:18] LABS: % IRON SATURATION 10.4 % (22-44); CALCIUM, TOTAL 8.5 mg/dL (8.8-10.5); CREATININE 2.61 mg/dL (0.60-1.30); MAGNESIUM 1.8 mg/dL (1.80-2.40); PHOSPHORUS 4.1 mg/dL (2.5-4.9); POTASSIUM 4.9 mmol/L (3.5-5.1)
[2020-04-04] MEDS: CLOPIDOGREL BISULFATE 75 MG TABLET PO SCH (08:01)
[2020-04-04] MEDS: CARVEDILOL 6.25 MG TABLET PO SCH ×2 (08:01→20:46)
[2020-04-04] MEDS: DOCUSATE SODIUM 100 MG CAPSULE PO SCH ×2 (08:01→20:46)
[2020-04-04] MEDS: FUROSEMIDE 40 MG TABLET PO SCH (08:01)
[2020-04-04] MEDS: FAMOTIDINE 20 MG TABLET PO SCH (08:02)
[2020-04-04] MEDS: HEPARIN SODIUM,PORCINE 5,000 UNITS/ML VIAL SQ SCH ×2 (08:06→20:46)
[2020-04-04] MEDS: ASPIRIN 81 MG CHEWABLE TABLET PO SCH (08:07)
[2020-04-04 08:27] VITALS: BP 155/70
[2020-04-04] MEDS: SOD FERRIC GLUC COMPLX/SUCROSE 125 MG in SODIUM CHLORIDE 0.9% 100 ML IV SCH (10:45)
[2020-04-04] MEDS ORDERED: SODIUM CHLORIDE 0.9% 250 ML IV ONE (10:54)
[2020-04-04 11:27] VITALS: BP 153/58
[2020-04-04 12:00] LABS: GLUCOMETER DEV NAME(LOC) 5N.3; GLUCOSE,POINT OF CARE 136 MG/DL (70-110)
[2020-04-04 15:20] VITALS: BP 178/72
[2020-04-04 15:44] VITALS: BP 146/79
[2020-04-04 20:19] VITALS: BP 149/62
[2020-04-04 20:37] LABS: GLUCOMETER DEV NAME(LOC) 5N.3; GLUCOSE,POINT OF CARE 119 MG/DL (70-110)
[2020-04-04] MEDS: ATORVASTATIN CALCIUM 20 MG TABLET PO SCH (20:46)
[2020-04-05 00:19] VITALS: BP 147/73
[2020-04-05] MEDS: MORPHINE SULFATE 2 MG/ML SYRINGE IVP PRN ×4 (01:17→17:59)
[2020-04-05] MEDS: IPRATROPIUM BROMIDE 0.5 MG/2.5 ML NEB SOLUTION NEB PRN ×2 (02:04→12:46)
[2020-04-05] MEDS: ALBUTEROL SULFATE 2.5 MG/0.5 ML NEB SOLUTION NEB PRN ×2 (02:04→12:46)
[2020-04-05 07:29] LABS: CALCIUM, TOTAL 8.5 mg/dL (8.8-10.5); CREATININE 2.33 mg/dL (0.60-1.30); MAGNESIUM 1.8 mg/dL (1.80-2.40); PHOSPHORUS 4.3 mg/dL (2.5-4.9); POTASSIUM 4.9 mmol/L (3.5-5.1)
[2020-04-05 08:58] VITALS: BP 151/65
[2020-04-05] MEDS: HEPARIN SODIUM,PORCINE 5,000 UNITS/ML VIAL SQ SCH (09:00)
[2020-04-05] MEDS: ASPIRIN 81 MG CHEWABLE TABLET PO SCH (10:43)
[2020-04-05] MEDS: CARVEDILOL 6.25 MG TABLET PO SCH (10:43)
[2020-04-05] MEDS: FUROSEMIDE 40 MG TABLET PO SCH (10:43)
[2020-04-05] MEDS: CLOPIDOGREL BISULFATE 75 MG TABLET PO SCH (10:43)
[2020-04-05] MEDS: DOCUSATE SODIUM 100 MG CAPSULE PO SCH (10:43)
[2020-04-05] MEDS: FAMOTIDINE 20 MG TABLET PO SCH (10:43)
[2020-04-05] MEDS: SOD FERRIC GLUC COMPLX/SUCROSE 125 MG in SODIUM CHLORIDE 0.9% 100 ML IV SCH (10:44)
[2020-04-05] MEDS ORDERED: FURO40 PO (11:21)
[2020-04-05] MEDS ORDERED: ATOR20TA65 PO (11:21)
[2020-04-05] MEDS ORDERED: CARV6 PO (11:21)
[2020-04-05] MEDS: INSULIN LISPRO 100 UNITS/ML SQ PRN ×2 (11:51→16:58)
[2020-04-05 11:55] VITALS: BP 147/73
[2020-04-05 12:01] LABS: GLUCOMETER DEV NAME(LOC) 5S.2A; GLUCOSE,POINT OF CARE 156 MG/DL (70-110)
[2020-04-05 12:01] LABS: GLUCOMETER DEV NAME(LOC) 5S.2A; GLUCOSE,POINT OF CARE 186 MG/DL (70-110)
[2020-04-05] MEDS ORDERED: ALPRAZolam 0.5 MG TABLET PO ONE (12:45)
[2020-04-05 18:04] VITALS: BP 133/60
[2020-04-06 05:57] LABS: GLUCOMETER DEV NAME(LOC) 5N.3; GLUCOSE,POINT OF CARE 89 MG/DL (70-110)
[2020-04-08 08:33] LABS: CREATININE,SERUM FOR CRCL 2.33 mg/dL (0.60-1.30)
== END 2020-04-05 18:50 | DRG 682 ==
LOC: EMS 02:12 → 5S 04:41
PROVIDERS: ADMIT Internal Medicine; ATTEND Internal Medicine
DX: N17.9 Acute kidney failure, unspecified (principal); I50.21 Acute systolic (congestive) heart failure; I13.0 Hypertensive heart and chronic kidney disease with heart failure and stage 1 through stage 4 chronic kidney disease, or unspecified chronic kidney disease; F11.20 Opioid dependence, uncomplicated; I42.9 Cardiomyopathy, unspecified; N18.4 Chronic kidney disease, stage 4 (severe); E11.22 Type 2 diabetes mellitus with diabetic chronic kidney disease; I25.10 Atherosclerotic heart disease of native coronary artery without angina pectoris; E87.5 Hyperkalemia; F41.9 Anxiety disorder, unspecified; E78.5 Hyperlipidemia, unspecified; E03.9 Hypothyroidism, unspecified; F12.90 Cannabis use, unspecified, uncomplicated; M25.571 Pain in right ankle and joints of right foot; J44.9 Chronic obstructive pulmonary disease, unspecified; I48.0 Paroxysmal atrial fibrillation; Z79.01 Long term (current) use of anticoagulants; Z79.4 Long term (current) use of insulin; Z79.82 Long term (current) use of aspirin; Z79.899 Other long term (current) drug therapy; Z87.442 Personal history of urinary calculi; Z95.1 Presence of aortocoronary bypass graft; Z95.820 Peripheral vascular angioplasty status with implants and grafts; Z95.0 Presence of cardiac pacemaker; Z91.041 Radiographic dye allergy status; Z91.018 Allergy to other foods; Z88.8 Allergy status to other drugs, medicaments and biological substances; Z79.51 Long term (current) use of inhaled steroids; Z03.818 Encounter for observation for suspected exposure to other biological agents ruled out
CPT/HCPCS: 78582; 81050; 82340; 83540; 83550; 83735; 84100; 84156; 84300; 85379; 87081; 93005; 93306; 94640; A9539; A9540; J1644; J1940; J2270; J2405; J2916; J7050; 36415-L1; 36415-TC; 71045-TC; 87635; J7613

== ENCOUNTER 2020-04-19 13:56 | Emergency (ER) | payer MEDICARE, OTHER ==
[~2020-04-19] VITALS: Ht 182.9 cm; Wt 100.0 kg
[~2020-04-19 13:56] MED LIST changes: -ALBU8.5H3 IH; -AMLO-257 PO; -APIX2.5T PO; -ASPI-728 PO; +ATOR20TA65 PO; -CHOL100018 PO; -CLOP75TA3 PO; -DULO30CA96 PO; -FURO20 PO; +FURO40 PO; -GABA-1181 PO; -INSU100C3 SQ; -LEVO100T4 PO; -METO25 PO; -MULT-1238 PO; -MUPI1OIN4 NS; -PERCT PO; -RANO500T3 PO
[2020-04-19 14:55] LABS: EOSINOPHILS % (AUTO) 9.4 % (1.0-6.0); HEMATOCRIT 24.8 % (36-46); HEMOGLOBIN 7.7 g/dL (12.0-16.0); LYMPHOCYTES # (AUTO) 0.8 K/uL (1.0-4.8); LYMPHOCYTES % (AUTO) 15.2 % (22.0-44.0); MEAN CORPUSCULAR HEMOGLOBIN 27.5 pg (26.0-34.0); MEAN CORPUSCULAR VOLUME 89 fL (80-100); MONOCYTES # (AUTO) 0.4 K/uL (0.1-1.0); MONOCYTES % (AUTO) 7.7 % (2.0-9.0); NEUTROPHILS # (AUTO) 3.4 K/uL (1.8-7.7); NEUTROPHILS % (AUTO) 66.7 % (40.0-70.0); PLATELET COUNT (AUTO) 182 K/uL (150-450); RED BLOOD CELL COUNT(AUTO) 2.79 MIL/uL (4.00-5.20); RED CELL DISTRIBUTION WIDTH 20.9 % (11.5-14.5)
[2020-04-19] MEDS ORDERED: ASPI-1111 PO (14:57)
[2020-04-19] MEDS ORDERED: ASCO500 PO (14:57)
[2020-04-19] MEDS ORDERED: ESCI20TA87 PO (14:57)
[2020-04-19] MEDS ORDERED: GABA-1181 PO (14:57)
[2020-04-19] MEDS ORDERED: GLIP10 PO (14:57)
[2020-04-19] MEDS ORDERED: BUME1TAB34 PO (14:57)
[2020-04-19] MEDS ORDERED: CLOP-31 PO (14:57)
[2020-04-19] MEDS ORDERED: LEVO150 PO (15:00)
[2020-04-19] MEDS ORDERED: PANT-31 PO (15:00)
[2020-04-19] MEDS ORDERED: RANO500T3 PO (15:00)
[2020-04-19] MEDS ORDERED: HYDR-4455 PO (15:00)
[2020-04-19] MEDS ORDERED: ISOS60TA4 PO (15:00)
[2020-04-19] MEDS ORDERED: INSLAN SQ (15:00)
[2020-04-19 15:08] LABS: CALCIUM, TOTAL 8.6 mg/dL (8.8-10.5); CREATININE 2.49 mg/dL (0.60-1.30); POTASSIUM 4.6 mmol/L (3.5-5.1)
[2020-04-19 15:11] LABS: INR 1.1 (0.9-1.1); PROTHROMBIN TIME 11.4 SEC (9.4-11.6)
[2020-04-19 15:14] LABS: ALBUMIN 2.3 g/dL (3.4-5.0); BILIRUBIN,TOTAL 0.2 mg/dL (0.1-1.0); TOTAL PROTEIN, SERUM 6.6 g/dL (6.4-8.2)
[2020-04-19 19:00] VITALS: BP 147/57
== END 2020-04-19 19:35 | disposition home or self-care (01) ==
LOC: EMS 13:59
DX: R07.89 Other chest pain (principal); E11.22 Type 2 diabetes mellitus with diabetic chronic kidney disease; I13.2 Hypertensive heart and chronic kidney disease with heart failure and with stage 5 chronic kidney disease, or end stage renal disease; N18.5 Chronic kidney disease, stage 5; I50.9 Heart failure, unspecified; J44.9 Chronic obstructive pulmonary disease, unspecified; E78.00 Pure hypercholesterolemia, unspecified; I25.2 Old myocardial infarction; I25.10 Atherosclerotic heart disease of native coronary artery without angina pectoris; F12.90 Cannabis use, unspecified, uncomplicated; Z95.810 Presence of automatic (implantable) cardiac defibrillator; Z86.73 Personal history of transient ischemic attack (TIA), and cerebral infarction without residual deficits; Z79.82 Long term (current) use of aspirin; Z79.4 Long term (current) use of insulin; Z91.041 Radiographic dye allergy status; Z88.5 Allergy status to narcotic agent; Z91.018 Allergy to other foods; Z79.899 Other long term (current) drug therapy
CPT/HCPCS: 93005; 93971; 36415-L1; 36415-TC; 71045-TC

== ENCOUNTER 2020-05-26 18:20 | Emergency (ER) | payer MEDICARE, OTHER ==
[~2020-05-26] VITALS: Ht 160 cm; Wt 97.5 kg
[~2020-05-26 18:20] MED LIST changes: +ASCO500 PO; +ASPI-1111 PO; +BUME1TAB34 PO; +CLOP-31 PO; +ESCI20TA87 PO; +GABA-1181 PO; +GLIP10 PO; +HYDR-4455 PO; +INSLAN SQ; +ISOS60TA4 PO; +LEVO150 PO; +PANT-31 PO; +RANO500T3 PO
[2020-05-26] MEDS ORDERED: OXYC10TA59 PO (19:55)
[2020-05-26] MEDS ORDERED: MULT1CAP32 PO (19:55)
[2020-05-26] MEDS ORDERED: LACT30L PO (19:55)
[2020-05-26] MEDS ORDERED: LEVO150 PO (19:55)
[2020-05-26] MEDS ORDERED: ISOS60TA4 PO (19:55)
[2020-05-26] MEDS ORDERED: GLIP5 PO (19:55)
[2020-05-26] MEDS ORDERED: BUME1TAB34 PO (19:55)
[2020-05-26] MEDS ORDERED: CARV6 PO (19:56)
[2020-05-26] MEDS ORDERED: OXYC10TA92 PO (20:10)
[2020-05-26] MEDS ORDERED: [UNRECOGNIZED DRUG - CODE] PO (20:10)
[2020-05-26] MEDS ORDERED: OxyCODONE HCL/ACETAMINOPHEN 5-325 MG TABLET PO ONE (20:15)
[2020-05-26 20:23] VITALS: BP 165/75
== END 2020-05-26 21:50 | disposition home or self-care (01) ==
LOC: EMS 18:22
DX: M54.5 Low back pain (principal); I25.10 Atherosclerotic heart disease of native coronary artery without angina pectoris; I11.0 Hypertensive heart disease with heart failure; I50.9 Heart failure, unspecified; E78.00 Pure hypercholesterolemia, unspecified

== ENCOUNTER 2020-06-10 00:30 | Inpatient (IN) | payer MEDICARE, OTHER ==
[~2020-06-10] VITALS: Ht 182.9 cm; Wt 98.8 kg
[~2020-06-10 00:30] MED LIST changes: +LACT30L PO; +MULT1CAP32 PO; -NITR2.5C16 PO; +OXYC10TA92 PO; +[UNRECOGNIZED DRUG - CODE] PO
[2020-06-10] MEDS ORDERED: NITROGLYCERIN 2% (1 GM=INCH) PACKET TP ONE (01:00)
[2020-06-10] MEDS ORDERED: ASPIRIN 81 MG CHEWABLE TABLET PO ONE (01:00)
[2020-06-10 01:24] LABS: BASOPHILS % (AUTO) 0.7 % (0.0-2.0); EOSINOPHILS % (AUTO) 5.8 % (1.0-6.0); HEMATOCRIT 26.7 % (36-46); HEMOGLOBIN 8.6 g/dL (12.0-16.0); LYMPHOCYTES % (AUTO) 17.1 % (22.0-44.0); MEAN CORPUSCULAR HEMOGLOBIN 28.6 pg (26.0-34.0); MEAN CORPUSCULAR HGB CONC 32.1 G/dL (31.0-37.0); MEAN CORPUSCULAR VOLUME 89 fL (80-100); MONOCYTES # (AUTO) 0.4 K/uL (0.1-1.0); MONOCYTES % (AUTO) 6.4 % (2.0-9.0); PLATELET COUNT (AUTO) 172 K/uL (150-450); RED CELL DISTRIBUTION WIDTH 19.2 % (11.5-14.5)
[2020-06-10 01:29] LABS: CALCIUM, TOTAL 8.1 mg/dL (8.8-10.5); CREATININE 2.74 mg/dL (0.60-1.30)
[2020-06-10] MEDS ORDERED: ACETAMINOPHEN 325 MG TABLET PO ONE (01:30)
[2020-06-10 01:34] LABS: ALBUMIN 2.6 g/dL (3.4-5.0); BILIRUBIN,TOTAL 0.2 mg/dL (0.1-1.0); TOTAL PROTEIN, SERUM 5.8 g/dL (6.4-8.2)
[2020-06-10] MEDS ORDERED: MORPHINE SULFATE 4 MG/ML SYRINGE IVP ONE (02:00)
[2020-06-10 02:35] LABS: COVID AG,FIA SOURCE NASOPHARYNGEAL
[2020-06-10 04:38] VITALS: BP 149/75
[2020-06-10] MEDS ORDERED: OxyCODONE HCL 10 MG IR TABLET PO PRN (05:30)
[2020-06-10] MEDS ORDERED: ACETAMINOPHEN 325 MG TABLET PO PRN (06:00)
[2020-06-10 06:13] LABS: CHOL/HDL RATIO 5.5 (3.9-5.7)
[2020-06-10] MEDS: PANTOPRAZOLE SODIUM 40 MG DR TABLET PO SCH (06:47)
[2020-06-10] MEDS: LEVOTHYROXINE SODIUM 150 MCG TABLET PO SCH (06:47)
[2020-06-10] MEDS: MORPHINE SULFATE 2 MG/ML SYRINGE IVP PRN ×2 (06:48→21:17)
[2020-06-10 08:51] VITALS: BP 129/59
[2020-06-10] MEDS: BUMETANIDE 1 MG TABLET PO SCH (09:24)
[2020-06-10] MEDS: DOCUSATE SODIUM 100 MG CAPSULE PO SCH ×2 (09:25→21:12)
[2020-06-10] MEDS: CARVEDILOL 6.25 MG TABLET PO SCH ×2 (09:25→21:12)
[2020-06-10] MEDS: ISOSORBIDE MONONITRATE 60 MG ER TABLET PO SCH (09:26)
[2020-06-10] MEDS: ESCITALOPRAM OXALATE 20 MG TABLET PO SCH (09:27)
[2020-06-10] MEDS: CLOPIDOGREL BISULFATE 75 MG TABLET PO SCH (09:27)
[2020-06-10] MEDS: GABAPENTIN 300 MG CAPSULE PO SCH ×3 (09:27→21:12)
[2020-06-10] MEDS: RANOLAZINE 500 MG ER TABLET PO SCH ×2 (09:28→21:35)
[2020-06-10] MEDS: ASCORBIC ACID 500 MG TABLET PO SCH (09:28)
[2020-06-10] MEDS: HEPARIN SODIUM,PORCINE 5,000 UNITS/ML VIAL SQ SCH ×2 (09:29→17:08)
[2020-06-10] MEDS: ASPIRIN 81 MG EC TABLET PO SCH (09:51)
[2020-06-10] MEDS ORDERED: ONDANSETRON HCL 4 MG/2 ML VIAL ONE (10:13)
[2020-06-10] MEDS: ONDANSETRON HCL 4 MG/2 ML VIAL IVP PRN (10:17)
[2020-06-10 11:33] VITALS: BP 136/61
[2020-06-10 16:34] VITALS: BP 120/51
[2020-06-10 19:54] VITALS: BP 137/67
[2020-06-10] MEDS: ATORVASTATIN CALCIUM 20 MG TABLET PO SCH (21:12)
[2020-06-10 23:46] VITALS: BP 145/60
[2020-06-11] MEDS: HEPARIN SODIUM,PORCINE 5,000 UNITS/ML VIAL SQ SCH ×4 (00:19→23:48)
[2020-06-11 05:20] VITALS: BP 142/68
[2020-06-11] MEDS: MORPHINE SULFATE 2 MG/ML SYRINGE IVP PRN ×4 (05:33→20:21)
[2020-06-11] MEDS: PANTOPRAZOLE SODIUM 40 MG DR TABLET PO SCH (06:09)
[2020-06-11] MEDS: LEVOTHYROXINE SODIUM 150 MCG TABLET PO SCH (06:09)
[2020-06-11 08:13] VITALS: BP 131/63
[2020-06-11] MEDS: RANOLAZINE 500 MG ER TABLET PO SCH ×2 (08:50→20:20)
[2020-06-11] MEDS: GABAPENTIN 300 MG CAPSULE PO SCH ×3 (08:50→20:20)
[2020-06-11] MEDS: DOCUSATE SODIUM 100 MG CAPSULE PO SCH ×2 (08:51→20:20)
[2020-06-11] MEDS: CLOPIDOGREL BISULFATE 75 MG TABLET PO SCH (08:51)
[2020-06-11] MEDS: ASPIRIN 81 MG EC TABLET PO SCH (08:51)
[2020-06-11] MEDS: ESCITALOPRAM OXALATE 20 MG TABLET PO SCH (08:51)
[2020-06-11] MEDS: ASCORBIC ACID 500 MG TABLET PO SCH (08:51)
[2020-06-11] MEDS: CARVEDILOL 6.25 MG TABLET PO SCH ×2 (08:51→20:20)
[2020-06-11] MEDS: ISOSORBIDE MONONITRATE 60 MG ER TABLET PO SCH (08:51)
[2020-06-11] MEDS: BUMETANIDE 1 MG TABLET PO SCH (08:52)
[2020-06-11] MEDS ORDERED: ATOR20TA86 PO (11:11)
[2020-06-11 11:39] VITALS: BP 134/61
[2020-06-11 15:14] VITALS: BP 105/52
[2020-06-11 19:36] VITALS: BP 106/46
[2020-06-11] MEDS: ATORVASTATIN CALCIUM 20 MG TABLET PO SCH (20:20)
[2020-06-11 23:40] VITALS: BP 128/59
[2020-06-12] MEDS: MORPHINE SULFATE 2 MG/ML SYRINGE IVP PRN ×5 (03:30→22:01)
[2020-06-12] MEDS: PANTOPRAZOLE SODIUM 40 MG DR TABLET PO SCH (06:11)
[2020-06-12] MEDS: LEVOTHYROXINE SODIUM 150 MCG TABLET PO SCH (06:11)
[2020-06-12 06:44] LABS: BASOPHILS % (AUTO) 0.6 % (0.0-2.0); HEMATOCRIT 24.8 % (36-46); LYMPHOCYTES % (AUTO) 20.1 % (22.0-44.0); MEAN CORPUSCULAR HEMOGLOBIN 28.9 pg (26.0-34.0); MEAN CORPUSCULAR HGB CONC 32.3 G/dL (31.0-37.0); MEAN CORPUSCULAR VOLUME 89 fL (80-100); MONOCYTES # (AUTO) 0.4 K/uL (0.1-1.0); MONOCYTES % (AUTO) 7.9 % (2.0-9.0); NEUTROPHILS # (AUTO) 3.1 K/uL (1.8-7.7); NEUTROPHILS % (AUTO) 65.4 % (40.0-70.0); PLATELET COUNT (AUTO) 161 K/uL (150-450); RED BLOOD CELL COUNT(AUTO) 2.77 MIL/uL (4.00-5.20); RED CELL DISTRIBUTION WIDTH 19.4 % (11.5-14.5)
[2020-06-12 07:02] LABS: ALBUMIN 2.2 g/dL (3.4-5.0); BILIRUBIN,TOTAL 0.2 mg/dL (0.1-1.0); CALCIUM, TOTAL 8.3 mg/dL (8.8-10.5); CREATININE 2.87 mg/dL (0.60-1.30); POTASSIUM 5.5 mmol/L (3.5-5.1); TOTAL PROTEIN, SERUM 5.9 g/dL (6.4-8.2)
[2020-06-12 08:16] VITALS: BP 130/51
[2020-06-12] MEDS: GABAPENTIN 300 MG CAPSULE PO SCH ×3 (08:21→21:54)
[2020-06-12] MEDS: DOCUSATE SODIUM 100 MG CAPSULE PO SCH ×2 (08:21→21:54)
[2020-06-12] MEDS: CARVEDILOL 6.25 MG TABLET PO SCH ×2 (08:22→21:53)
[2020-06-12] MEDS: RANOLAZINE 500 MG ER TABLET PO SCH ×2 (08:22→21:53)
[2020-06-12] MEDS: ISOSORBIDE MONONITRATE 60 MG ER TABLET PO SCH (08:22)
[2020-06-12] MEDS: CLOPIDOGREL BISULFATE 75 MG TABLET PO SCH (08:22)
[2020-06-12] MEDS: ASPIRIN 81 MG EC TABLET PO SCH (08:22)
[2020-06-12] MEDS: ASCORBIC ACID 500 MG TABLET PO SCH (08:23)
[2020-06-12] MEDS: HEPARIN SODIUM,PORCINE 5,000 UNITS/ML VIAL SQ SCH ×2 (08:23→16:42)
[2020-06-12] MEDS: BUMETANIDE 1 MG TABLET PO SCH (08:23)
[2020-06-12] MEDS: ESCITALOPRAM OXALATE 20 MG TABLET PO SCH (08:23)
[2020-06-12 11:11] VITALS: BP 138/53
[2020-06-12] MEDS ORDERED: SODIUM POLYSTYRENE SULFONATE 15 GM/60 ML SUSPENSION BOTTLE PO ONE (11:30)
[2020-06-12 15:36] VITALS: BP 135/51
[2020-06-12] MEDS: LACTULOSE 20 GM/30 ML SOLUTION UDCUP PO PRN (17:17)
[2020-06-12 20:00] VITALS: BP 143/60
[2020-06-12] MEDS: ATORVASTATIN CALCIUM 20 MG TABLET PO SCH (21:53)
[2020-06-13] VITALS (8 sets, daily range): BP systolic 127–191; BP diastolic 49–97
[2020-06-13] MEDS: HEPARIN SODIUM,PORCINE 5,000 UNITS/ML VIAL SQ SCH ×4 (00:49→23:10)
[2020-06-13 05:35] LABS: BASOPHILS % (AUTO) 1.2 % (0.0-2.0); EOSINOPHILS % (AUTO) 5.5 % (1.0-6.0); HEMATOCRIT 25.2 % (36-46); HEMOGLOBIN 8.2 g/dL (12.0-16.0); LYMPHOCYTES % (AUTO) 17.6 % (22.0-44.0); MEAN CORPUSCULAR HEMOGLOBIN 29.1 pg (26.0-34.0); MEAN CORPUSCULAR HGB CONC 32.7 G/dL (31.0-37.0); MEAN CORPUSCULAR VOLUME 89 fL (80-100); MONOCYTES # (AUTO) 0.4 K/uL (0.1-1.0); MONOCYTES % (AUTO) 8.1 % (2.0-9.0); NEUTROPHILS # (AUTO) 3.7 K/uL (1.8-7.7); NEUTROPHILS % (AUTO) 67.6 % (40.0-70.0); PLATELET COUNT (AUTO) 162 K/uL (150-450); RED BLOOD CELL COUNT(AUTO) 2.82 MIL/uL (4.00-5.20); RED CELL DISTRIBUTION WIDTH 19.4 % (11.5-14.5)
[2020-06-13 05:47] LABS: ALBUMIN 2.3 g/dL (3.4-5.0); BILIRUBIN,TOTAL 0.2 mg/dL (0.1-1.0); CREATININE 2.86 mg/dL (0.60-1.30); POTASSIUM 4.7 mmol/L (3.5-5.1); TOTAL PROTEIN, SERUM 5.9 g/dL (6.4-8.2)
[2020-06-13] MEDS: LEVOTHYROXINE SODIUM 150 MCG TABLET PO SCH (06:46)
[2020-06-13] MEDS: PANTOPRAZOLE SODIUM 40 MG DR TABLET PO SCH (06:46)
[2020-06-13] MEDS: RANOLAZINE 500 MG ER TABLET PO SCH ×2 (08:15→20:04)
[2020-06-13] MEDS: GABAPENTIN 300 MG CAPSULE PO SCH ×3 (08:16→20:04)
[2020-06-13] MEDS: ASCORBIC ACID 500 MG TABLET PO SCH (08:16)
[2020-06-13] MEDS: CARVEDILOL 6.25 MG TABLET PO SCH ×2 (08:16→20:04)
[2020-06-13] MEDS: BUMETANIDE 1 MG TABLET PO SCH (08:16)
[2020-06-13] MEDS: ASPIRIN 81 MG EC TABLET PO SCH (08:17)
[2020-06-13] MEDS: ESCITALOPRAM OXALATE 20 MG TABLET PO SCH (08:17)
[2020-06-13] MEDS: ISOSORBIDE MONONITRATE 60 MG ER TABLET PO SCH (08:17)
[2020-06-13] MEDS: DOCUSATE SODIUM 100 MG CAPSULE PO SCH ×2 (08:17→20:05)
[2020-06-13] MEDS: MORPHINE SULFATE 2 MG/ML SYRINGE IVP PRN ×4 (08:18→20:02)
[2020-06-13] MEDS: CLOPIDOGREL BISULFATE 75 MG TABLET PO SCH (08:18)
[2020-06-13] MEDS: LACTULOSE 20 GM/30 ML SOLUTION UDCUP PO PRN (08:27)
[2020-06-13] MEDS: ONDANSETRON HCL 4 MG/2 ML VIAL IVP PRN (11:00)
[2020-06-13] MEDS ORDERED: BISACODYL 10 MG RECTAL RECTAL SUPPOSITORY PR ONE (11:15)
[2020-06-13] MEDS ORDERED: MAGNESIUM CITRATE 300 ML ORAL SOLUTION PO ONE (11:15)
[2020-06-13] MEDS ORDERED: CloNIDine HCL 0.1 MG TABLET PO ONE (15:30)
[2020-06-13] MEDS: ATORVASTATIN CALCIUM 20 MG TABLET PO SCH (20:04)
[2020-06-13] MEDS ORDERED: CloNIDine HCL 0.1 MG TABLET PO PRN (20:45)
[2020-06-14 04:00] VITALS: BP 106/48
[2020-06-14] MEDS: LEVOTHYROXINE SODIUM 150 MCG TABLET PO SCH (06:15)
[2020-06-14] MEDS: PANTOPRAZOLE SODIUM 40 MG DR TABLET PO SCH (06:15)
[2020-06-14 06:40] LABS: BASOPHILS % (AUTO) 0.3 % (0.0-2.0); EOSINOPHILS % (AUTO) 0.1 % (1.0-6.0); HEMOGLOBIN 9.4 g/dL (12.0-16.0); LYMPHOCYTES # (AUTO) 0.6 K/uL (1.0-4.8); LYMPHOCYTES % (AUTO) 5.7 % (22.0-44.0); MEAN CORPUSCULAR HEMOGLOBIN 28.8 pg (26.0-34.0); MEAN CORPUSCULAR HGB CONC 32.3 G/dL (31.0-37.0); MEAN CORPUSCULAR VOLUME 89 fL (80-100); MONOCYTES # (AUTO) 0.6 K/uL (0.1-1.0); MONOCYTES % (AUTO) 5.1 % (2.0-9.0); NEUTROPHILS # (AUTO) 9.9 K/uL (1.8-7.7); PLATELET COUNT (AUTO) 194 K/uL (150-450); RED BLOOD CELL COUNT(AUTO) 3.26 MIL/uL (4.00-5.20); RED CELL DISTRIBUTION WIDTH 19.4 % (11.5-14.5)
[2020-06-14 06:47] LABS: NEUTROPHILS % (AUTO) 88.8 % (40.0-70.0)
[2020-06-14 07:24] LABS: ALBUMIN 2.3 g/dL (3.4-5.0); BILIRUBIN,TOTAL 0.3 mg/dL (0.1-1.0); CALCIUM, TOTAL 8.5 mg/dL (8.8-10.5); CREATININE 3.13 mg/dL (0.60-1.30); POTASSIUM 4.7 mmol/L (3.5-5.1); TOTAL PROTEIN, SERUM 6.6 g/dL (6.4-8.2)
[2020-06-14 08:28] VITALS: BP 143/49
[2020-06-14] MEDS: ASCORBIC ACID 500 MG TABLET PO SCH (08:42)
[2020-06-14] MEDS: GABAPENTIN 300 MG CAPSULE PO SCH ×3 (08:42→20:09)
[2020-06-14] MEDS: HEPARIN SODIUM,PORCINE 5,000 UNITS/ML VIAL SQ SCH ×3 (08:42→23:32)
[2020-06-14] MEDS: ASPIRIN 81 MG EC TABLET PO SCH (08:43)
[2020-06-14] MEDS: BUMETANIDE 1 MG TABLET PO SCH (08:43)
[2020-06-14] MEDS: RANOLAZINE 500 MG ER TABLET PO SCH ×2 (08:43→20:08)
[2020-06-14] MEDS: CLOPIDOGREL BISULFATE 75 MG TABLET PO SCH (08:43)
[2020-06-14] MEDS: CARVEDILOL 6.25 MG TABLET PO SCH ×2 (08:43→20:08)
[2020-06-14] MEDS: ISOSORBIDE MONONITRATE 60 MG ER TABLET PO SCH (08:43)
[2020-06-14] MEDS: DOCUSATE SODIUM 100 MG CAPSULE PO SCH ×2 (08:52→20:08)
[2020-06-14] MEDS: ESCITALOPRAM OXALATE 20 MG TABLET PO SCH (09:00)
[2020-06-14] MEDS ORDERED: SODIUM CHLORIDE 0.45% 1,000 ML IV ONE (11:00)
[2020-06-14 17:49] LABS: GLUCOMETER DEV NAME(LOC) 4E.2; GLUCOSE,POINT OF CARE 127 MG/DL (70-110)
[2020-06-14 19:10] VITALS: BP 95/67
[2020-06-14] MEDS: ATORVASTATIN CALCIUM 20 MG TABLET PO SCH (20:08)
[2020-06-14 20:09] VITALS: BP 108/53
[2020-06-14] MEDS: MORPHINE SULFATE 2 MG/ML SYRINGE IVP PRN (20:09)
[2020-06-15] VITALS (7 sets, daily range): BP systolic 103–135; BP diastolic 48–76
[2020-06-15] MEDS: MORPHINE SULFATE 2 MG/ML SYRINGE IVP PRN ×2 (00:31→09:54)
[2020-06-15] MEDS: PANTOPRAZOLE SODIUM 40 MG DR TABLET PO SCH (05:48)
[2020-06-15] MEDS: LEVOTHYROXINE SODIUM 150 MCG TABLET PO SCH (05:48)
[2020-06-15] MEDS: HEPARIN SODIUM,PORCINE 5,000 UNITS/ML VIAL SQ SCH ×2 (08:41→16:00)
[2020-06-15] MEDS: ISOSORBIDE MONONITRATE 60 MG ER TABLET PO SCH (08:42)
[2020-06-15] MEDS: GABAPENTIN 300 MG CAPSULE PO SCH ×3 (08:42→20:01)
[2020-06-15] MEDS: CARVEDILOL 6.25 MG TABLET PO SCH ×2 (08:42→20:07)
[2020-06-15] MEDS: CLOPIDOGREL BISULFATE 75 MG TABLET PO SCH (08:42)
[2020-06-15] MEDS: ESCITALOPRAM OXALATE 20 MG TABLET PO SCH (08:42)
[2020-06-15] MEDS: ASCORBIC ACID 500 MG TABLET PO SCH (08:42)
[2020-06-15] MEDS: ASPIRIN 81 MG EC TABLET PO SCH (08:42)
[2020-06-15] MEDS: DOCUSATE SODIUM 100 MG CAPSULE PO SCH ×2 (08:43→20:06)
[2020-06-15] MEDS: RANOLAZINE 500 MG ER TABLET PO SCH ×2 (08:43→20:01)
[2020-06-15 11:42] LABS: BASOPHILS % (AUTO) 0.3 % (0.0-2.0); EOSINOPHILS % (AUTO) 2.1 % (1.0-6.0); HEMATOCRIT 25.2 % (36-46); HEMOGLOBIN 8.1 g/dL (12.0-16.0); LYMPHOCYTES # (AUTO) 0.9 K/uL (1.0-4.8); MEAN CORPUSCULAR HEMOGLOBIN 28.6 pg (26.0-34.0); MEAN CORPUSCULAR HGB CONC 32.2 G/dL (31.0-37.0); MEAN CORPUSCULAR VOLUME 89 fL (80-100); MONOCYTES # (AUTO) 0.7 K/uL (0.1-1.0); MONOCYTES % (AUTO) 6.6 % (2.0-9.0); NEUTROPHILS # (AUTO) 9.2 K/uL (1.8-7.7); PLATELET COUNT (AUTO) 167 K/uL (150-450); RED BLOOD CELL COUNT(AUTO) 2.84 MIL/uL (4.00-5.20); RED CELL DISTRIBUTION WIDTH 19.3 % (11.5-14.5)
[2020-06-15 11:50] LABS: ALBUMIN 2.2 g/dL (3.4-5.0); BILIRUBIN,TOTAL 0.3 mg/dL (0.1-1.0); CALCIUM, TOTAL 8.4 mg/dL (8.8-10.5); CREATININE 3.81 mg/dL (0.60-1.30); POTASSIUM 4.3 mmol/L (3.5-5.1); TOTAL PROTEIN, SERUM 6.3 g/dL (6.4-8.2)
[2020-06-15] MEDS ORDERED: SODIUM CHLORIDE 0.9% 1,000 ML IV ONE (13:45)
[2020-06-15] MEDS: ATORVASTATIN CALCIUM 20 MG TABLET PO SCH (20:01)
[2020-06-16] MEDS: HEPARIN SODIUM,PORCINE 5,000 UNITS/ML VIAL SQ SCH ×4 (00:09→23:44)
[2020-06-16 06:00] VITALS: BP 119/61
[2020-06-16] MEDS: LEVOTHYROXINE SODIUM 150 MCG TABLET PO SCH (06:07)
[2020-06-16] MEDS: PANTOPRAZOLE SODIUM 40 MG DR TABLET PO SCH (06:08)
[2020-06-16] MEDS: DOCUSATE SODIUM 100 MG CAPSULE PO SCH ×2 (07:56→20:09)
[2020-06-16] MEDS: GABAPENTIN 300 MG CAPSULE PO SCH ×3 (07:57→20:09)
[2020-06-16] MEDS: CLOPIDOGREL BISULFATE 75 MG TABLET PO SCH (07:57)
[2020-06-16] MEDS: ASCORBIC ACID 500 MG TABLET PO SCH (07:57)
[2020-06-16] MEDS: RANOLAZINE 500 MG ER TABLET PO SCH ×2 (07:57→20:09)
[2020-06-16] MEDS: ASPIRIN 81 MG EC TABLET PO SCH (07:57)
[2020-06-16] MEDS: ESCITALOPRAM OXALATE 20 MG TABLET PO SCH (07:57)
[2020-06-16] MEDS: ISOSORBIDE MONONITRATE 60 MG ER TABLET PO SCH (07:57)
[2020-06-16] MEDS: CARVEDILOL 6.25 MG TABLET PO SCH ×2 (07:57→21:00)
[2020-06-16 08:30] VITALS: BP 130/72
[2020-06-16 10:56] LABS: BASOPHILS % (AUTO) 0.3 % (0.0-2.0); EOSINOPHILS % (AUTO) 3.4 % (1.0-6.0); HEMATOCRIT 21.6 % (36-46); HEMOGLOBIN 7.2 g/dL (12.0-16.0); LYMPHOCYTES # (AUTO) 0.6 K/uL (1.0-4.8); LYMPHOCYTES % (AUTO) 8.6 % (22.0-44.0); MEAN CORPUSCULAR HEMOGLOBIN 29.2 pg (26.0-34.0); MEAN CORPUSCULAR HGB CONC 33.1 G/dL (31.0-37.0); MEAN CORPUSCULAR VOLUME 88 fL (80-100); MONOCYTES # (AUTO) 0.6 K/uL (0.1-1.0); MONOCYTES % (AUTO) 8.4 % (2.0-9.0); NEUTROPHILS # (AUTO) 5.8 K/uL (1.8-7.7); NEUTROPHILS % (AUTO) 79.3 % (40.0-70.0); PLATELET COUNT (AUTO) 169 K/uL (150-450); RED BLOOD CELL COUNT(AUTO) 2.45 MIL/uL (4.00-5.20); RED CELL DISTRIBUTION WIDTH 19.2 % (11.5-14.5)
[2020-06-16] MEDS: MORPHINE SULFATE 2 MG/ML SYRINGE IVP PRN ×4 (11:14→23:54)
[2020-06-16 11:56] LABS: ALBUMIN 2.1 g/dL (3.4-5.0); BILIRUBIN,TOTAL 0.3 mg/dL (0.1-1.0); CALCIUM, TOTAL 8.2 mg/dL (8.8-10.5); CREATININE 4.05 mg/dL (0.60-1.30); POTASSIUM 4.5 mmol/L (3.5-5.1); TOTAL PROTEIN, SERUM 5.8 g/dL (6.4-8.2)
[2020-06-16] MEDS ORDERED: EPOETIN ALFA 10,000 UNITS/ML VIAL SQ ONE (17:15)
[2020-06-16] MEDS: ATORVASTATIN CALCIUM 20 MG TABLET PO SCH (20:09)
[2020-06-16 20:10] VITALS: BP 107/54
[2020-06-16 20:56] LABS: APPEARANCE,URINE TURBID (CLEAR); GLUCOSE, URINE (UA) NEGATIVE (NEGATIVE); KETONES,URINE 15 mg/dL (NEGATIVE); LEUKOCYTE ESTERASE ,URINE LARGE (NEGATIVE); OCCULT BLOOD,URINE LARGE (NEGATIVE); PROTEIN,URINE SEE CONFIRM (NEGATIVE)
[2020-06-16 21:05] LABS: BILIRUBIN,URINE PRELIM. POSITIVE (NEGATIVE)
[2020-06-16 21:10] LABS: SULFOSALICYLIC ACID,URINE 4+ (Negative)
[2020-06-16 21:11] LABS: BACTERIA,URINE Few /HPF (None Seen); NITRATE,URINE NEGATIVE (NEGATIVE); SQUAMOUS EPITHELIAL CELL,UR Few /LPF (None Seen); WBC,URINE >100 /HPF (0-5)
[2020-06-17 00:04] VITALS: BP 108/53
[2020-06-17] MEDS: PANTOPRAZOLE SODIUM 40 MG DR TABLET PO SCH (05:20)
[2020-06-17] MEDS: LEVOTHYROXINE SODIUM 150 MCG TABLET PO SCH (05:21)
[2020-06-17] MEDS: MORPHINE SULFATE 2 MG/ML SYRINGE IVP PRN ×4 (05:21→22:16)
[2020-06-17 05:38] VITALS: BP 130/58
[2020-06-17 06:58] LABS: BASOPHILS % (AUTO) 0.4 % (0.0-2.0); EOSINOPHILS % (AUTO) 5.7 % (1.0-6.0); HEMATOCRIT 21.4 % (36-46); HEMOGLOBIN 7.1 g/dL (12.0-16.0); LYMPHOCYTES # (AUTO) 0.9 K/uL (1.0-4.8); LYMPHOCYTES % (AUTO) 15.6 % (22.0-44.0); MEAN CORPUSCULAR HEMOGLOBIN 29.5 pg (26.0-34.0); MEAN CORPUSCULAR HGB CONC 33.4 G/dL (31.0-37.0); MEAN CORPUSCULAR VOLUME 88 fL (80-100); MONOCYTES # (AUTO) 0.5 K/uL (0.1-1.0); MONOCYTES % (AUTO) 9.6 % (2.0-9.0); NEUTROPHILS # (AUTO) 3.8 K/uL (1.8-7.7); NEUTROPHILS % (AUTO) 68.7 % (40.0-70.0); PLATELET COUNT (AUTO) 161 K/uL (150-450); RED BLOOD CELL COUNT(AUTO) 2.42 MIL/uL (4.00-5.20); RED CELL DISTRIBUTION WIDTH 19.7 % (11.5-14.5)
[2020-06-17 07:23] LABS: % IRON SATURATION 11.7 % (22-44)
[2020-06-17 07:28] LABS: BILIRUBIN,TOTAL 0.2 mg/dL (0.1-1.0); CREATININE 4.49 mg/dL (0.60-1.30); HEMOGLOBIN A1C 6.4 % (3.8-5.6); POTASSIUM 4.3 mmol/L (3.5-5.1); TOTAL PROTEIN, SERUM 5.7 g/dL (6.4-8.2)
[2020-06-17] MEDS: ASCORBIC ACID 500 MG TABLET PO SCH (08:21)
[2020-06-17] MEDS: GABAPENTIN 300 MG CAPSULE PO SCH ×3 (08:21→20:00)
[2020-06-17] MEDS: RANOLAZINE 500 MG ER TABLET PO SCH ×2 (08:21→20:00)
[2020-06-17] MEDS: ISOSORBIDE MONONITRATE 60 MG ER TABLET PO SCH (08:22)
[2020-06-17] MEDS: ESCITALOPRAM OXALATE 20 MG TABLET PO SCH (08:22)
[2020-06-17] MEDS: ASPIRIN 81 MG EC TABLET PO SCH (08:22)
[2020-06-17 08:23] VITALS: BP 114/54
[2020-06-17] MEDS: DOCUSATE SODIUM 100 MG CAPSULE PO SCH ×2 (08:23→20:00)
[2020-06-17] MEDS: CLOPIDOGREL BISULFATE 75 MG TABLET PO SCH (08:23)
[2020-06-17] MEDS: HEPARIN SODIUM,PORCINE 5,000 UNITS/ML VIAL SQ SCH ×3 (08:24→23:23)
[2020-06-17] MEDS: CARVEDILOL 6.25 MG TABLET PO SCH ×2 (08:27→20:01)
[2020-06-17] MEDS ORDERED: CefTRIAXone 1 GM/DEXTROSE 50 ML IV SCH (11:30)
[2020-06-17] MEDS: CefTRIAXone 1 GM/DEXTROSE 50 ML IV SCH (12:26)
[2020-06-17] MEDS: SOD FERRIC GLUC COMPLX/SUCROSE 125 MG in SODIUM CHLORIDE 0.9% 100 ML IV SCH (13:11)
[2020-06-17] MEDS ORDERED: SODIUM CHLORIDE 0.9% 250 ML IV ONE (13:12)
[2020-06-17 15:50] VITALS: BP 130/56
[2020-06-17] MEDS: ATORVASTATIN CALCIUM 20 MG TABLET PO SCH (20:00)
[2020-06-17 20:02] VITALS: BP 136/54
[2020-06-18] MEDS: LEVOTHYROXINE SODIUM 150 MCG TABLET PO SCH (05:35)
[2020-06-18] MEDS: PANTOPRAZOLE SODIUM 40 MG DR TABLET PO SCH (05:35)
[2020-06-18] MEDS: MORPHINE SULFATE 2 MG/ML SYRINGE IVP PRN ×4 (05:35→20:20)
[2020-06-18 06:50] LABS: BASOPHILS % (AUTO) 0.8 % (0.0-2.0); EOSINOPHILS % (AUTO) 6.3 % (1.0-6.0); HEMATOCRIT 22.3 % (36-46); HEMOGLOBIN 7.3 g/dL (12.0-16.0); LYMPHOCYTES # (AUTO) 0.8 K/uL (1.0-4.8); LYMPHOCYTES % (AUTO) 16.5 % (22.0-44.0); MEAN CORPUSCULAR HEMOGLOBIN 28.8 pg (26.0-34.0); MEAN CORPUSCULAR HGB CONC 32.6 G/dL (31.0-37.0); MEAN CORPUSCULAR VOLUME 88 fL (80-100); MONOCYTES # (AUTO) 0.5 K/uL (0.1-1.0); MONOCYTES % (AUTO) 10.1 % (2.0-9.0); NEUTROPHILS # (AUTO) 3.4 K/uL (1.8-7.7); NEUTROPHILS % (AUTO) 66.3 % (40.0-70.0); PLATELET COUNT (AUTO) 176 K/uL (150-450); RED BLOOD CELL COUNT(AUTO) 2.53 MIL/uL (4.00-5.20); RED CELL DISTRIBUTION WIDTH 18.8 % (11.5-14.5)
[2020-06-18 07:06] LABS: ALBUMIN 1.9 g/dL (3.4-5.0); BILIRUBIN,TOTAL 0.2 mg/dL (0.1-1.0); CALCIUM, TOTAL 8.2 mg/dL (8.8-10.5); CREATININE 3.96 mg/dL (0.60-1.30); POTASSIUM 4.3 mmol/L (3.5-5.1); TOTAL PROTEIN, SERUM 5.9 g/dL (6.4-8.2)
[2020-06-18 08:01] VITALS: BP 126/76
[2020-06-18] MEDS: ASCORBIC ACID 500 MG TABLET PO SCH (08:09)
[2020-06-18] MEDS: CARVEDILOL 6.25 MG TABLET PO SCH ×2 (08:09→19:54)
[2020-06-18] MEDS: DOCUSATE SODIUM 100 MG CAPSULE PO SCH ×2 (08:09→19:54)
[2020-06-18] MEDS: ASPIRIN 81 MG EC TABLET PO SCH (08:09)
[2020-06-18] MEDS: RANOLAZINE 500 MG ER TABLET PO SCH ×2 (08:10→19:54)
[2020-06-18] MEDS: ISOSORBIDE MONONITRATE 60 MG ER TABLET PO SCH (08:10)
[2020-06-18] MEDS: GABAPENTIN 300 MG CAPSULE PO SCH ×3 (08:10→19:54)
[2020-06-18] MEDS: CLOPIDOGREL BISULFATE 75 MG TABLET PO SCH (08:10)
[2020-06-18] MEDS: ESCITALOPRAM OXALATE 20 MG TABLET PO SCH (08:10)
[2020-06-18] MEDS: HEPARIN SODIUM,PORCINE 5,000 UNITS/ML VIAL SQ SCH ×3 (08:11→23:48)
[2020-06-18] MEDS: CefTRIAXone 1 GM/DEXTROSE 50 ML IV SCH (10:52)
[2020-06-18] MEDS: SOD FERRIC GLUC COMPLX/SUCROSE 125 MG in SODIUM CHLORIDE 0.9% 100 ML IV SCH (13:09)
[2020-06-18 16:01] VITALS: BP 112/56
[2020-06-18 19:40] VITALS: BP 124/46
[2020-06-18] MEDS: ATORVASTATIN CALCIUM 20 MG TABLET PO SCH (19:54)
[2020-06-19] VITALS (7 sets, daily range): BP systolic 110–138; BP diastolic 50–63
[2020-06-19] MEDS: MORPHINE SULFATE 2 MG/ML SYRINGE IVP PRN ×4 (00:22→18:28)
[2020-06-19] MEDS: LEVOTHYROXINE SODIUM 150 MCG TABLET PO SCH (06:01)
[2020-06-19] MEDS: PANTOPRAZOLE SODIUM 40 MG DR TABLET PO SCH (06:01)
[2020-06-19 06:17] LABS: BASOPHILS % (AUTO) 0.7 % (0.0-2.0); EOSINOPHILS % (AUTO) 6.2 % (1.0-6.0); HEMATOCRIT 23.1 % (36-46); HEMOGLOBIN 7.5 g/dL (12.0-16.0); LYMPHOCYTES # (AUTO) 0.8 K/uL (1.0-4.8); LYMPHOCYTES % (AUTO) 14.8 % (22.0-44.0); MEAN CORPUSCULAR HEMOGLOBIN 28.8 pg (26.0-34.0); MEAN CORPUSCULAR HGB CONC 32.6 G/dL (31.0-37.0); MEAN CORPUSCULAR VOLUME 89 fL (80-100); MONOCYTES # (AUTO) 0.5 K/uL (0.1-1.0); MONOCYTES % (AUTO) 10.1 % (2.0-9.0); NEUTROPHILS # (AUTO) 3.7 K/uL (1.8-7.7); NEUTROPHILS % (AUTO) 68.2 % (40.0-70.0); PLATELET COUNT (AUTO) 193 K/uL (150-450); RED BLOOD CELL COUNT(AUTO) 2.61 MIL/uL (4.00-5.20); RED CELL DISTRIBUTION WIDTH 19.2 % (11.5-14.5)
[2020-06-19 06:36] LABS: ALBUMIN 1.9 g/dL (3.4-5.0); BILIRUBIN,TOTAL 0.3 mg/dL (0.1-1.0); CALCIUM, TOTAL 8.3 mg/dL (8.8-10.5); CREATININE 4.12 mg/dL (0.60-1.30); POTASSIUM 4.6 mmol/L (3.5-5.1)
[2020-06-19] MEDS: RANOLAZINE 500 MG ER TABLET PO SCH ×2 (08:12→20:41)
[2020-06-19] MEDS: ISOSORBIDE MONONITRATE 60 MG ER TABLET PO SCH (08:13)
[2020-06-19] MEDS: ASCORBIC ACID 500 MG TABLET PO SCH (08:13)
[2020-06-19] MEDS: GABAPENTIN 300 MG CAPSULE PO SCH ×3 (08:13→20:40)
[2020-06-19] MEDS: CARVEDILOL 6.25 MG TABLET PO SCH ×2 (08:13→20:39)
[2020-06-19] MEDS: ASPIRIN 81 MG EC TABLET PO SCH (08:13)
[2020-06-19] MEDS: DOCUSATE SODIUM 100 MG CAPSULE PO SCH ×2 (08:13→20:39)
[2020-06-19] MEDS: HEPARIN SODIUM,PORCINE 5,000 UNITS/ML VIAL SQ SCH ×3 (08:14→23:51)
[2020-06-19] MEDS: ESCITALOPRAM OXALATE 20 MG TABLET PO SCH (08:14)
[2020-06-19] MEDS ORDERED: SODIUM CHLORIDE 0.9% 1,000 ML IV ONE (08:45)
[2020-06-19] MEDS ORDERED: *CLINICAL-RENAL DOSING MEDICATIONS CLINICAL ONE (10:45)
[2020-06-19] MEDS ORDERED: EPOETIN ALFA 10,000 UNITS/ML VIAL SQ SCH (10:46)
[2020-06-19] MEDS ORDERED: VANCOMYCIN HCL 1.5 GM in DEXTROSE 5%-WATER 250 ML IV ONE (11:00)
[2020-06-19] MEDS ORDERED: VANCOMYCIN HCL 1 GM/D5% WATER 200 ML IV ONE (11:00)
[2020-06-19] MEDS: CefTRIAXone 1 GM/DEXTROSE 50 ML IV SCH (11:57)
[2020-06-19] MEDS: SOD FERRIC GLUC COMPLX/SUCROSE 125 MG in SODIUM CHLORIDE 0.9% 100 ML IV SCH (13:57)
[2020-06-19] MEDS: ATORVASTATIN CALCIUM 20 MG TABLET PO SCH (20:39)
[2020-06-20] MEDS: MORPHINE SULFATE 2 MG/ML SYRINGE IVP PRN ×3 (01:58→23:08)
[2020-06-20 04:55] VITALS: BP 126/54
[2020-06-20] MEDS: LEVOTHYROXINE SODIUM 150 MCG TABLET PO SCH (06:17)
[2020-06-20] MEDS: PANTOPRAZOLE SODIUM 40 MG DR TABLET PO SCH (06:17)
[2020-06-20 06:39] LABS: BASOPHILS % (AUTO) 0.5 % (0.0-2.0); EOSINOPHILS % (AUTO) 4.5 % (1.0-6.0); HEMATOCRIT 23.9 % (36-46); HEMOGLOBIN 7.7 g/dL (12.0-16.0); LYMPHOCYTES # (AUTO) 0.9 K/uL (1.0-4.8); LYMPHOCYTES % (AUTO) 13.1 % (22.0-44.0); MEAN CORPUSCULAR HEMOGLOBIN 29.4 pg (26.0-34.0); MEAN CORPUSCULAR HGB CONC 32.4 G/dL (31.0-37.0); MEAN CORPUSCULAR VOLUME 91 fL (80-100); MONOCYTES # (AUTO) 0.6 K/uL (0.1-1.0); MONOCYTES % (AUTO) 8.5 % (2.0-9.0); NEUTROPHILS # (AUTO) 5.3 K/uL (1.8-7.7); NEUTROPHILS % (AUTO) 73.4 % (40.0-70.0); PLATELET COUNT (AUTO) 207 K/uL (150-450); RED BLOOD CELL COUNT(AUTO) 2.64 MIL/uL (4.00-5.20); RED CELL DISTRIBUTION WIDTH 19.5 % (11.5-14.5)
[2020-06-20 06:44] LABS: CALCIUM, TOTAL 8.4 mg/dL (8.8-10.5); CREATININE 3.94 mg/dL (0.60-1.30); POTASSIUM 4.9 mmol/L (3.5-5.1)
[2020-06-20 08:02] VITALS: BP 107/75
[2020-06-20] MEDS: ESCITALOPRAM OXALATE 20 MG TABLET PO SCH (08:08)
[2020-06-20] MEDS: RANOLAZINE 500 MG ER TABLET PO SCH ×2 (08:08→20:31)
[2020-06-20] MEDS: CARVEDILOL 6.25 MG TABLET PO SCH ×2 (08:09→20:31)
[2020-06-20] MEDS: ASCORBIC ACID 500 MG TABLET PO SCH (08:09)
[2020-06-20] MEDS: ASPIRIN 81 MG EC TABLET PO SCH (08:09)
[2020-06-20] MEDS: HEPARIN SODIUM,PORCINE 5,000 UNITS/ML VIAL SQ SCH ×3 (08:09→23:06)
[2020-06-20] MEDS: DOCUSATE SODIUM 100 MG CAPSULE PO SCH ×2 (08:09→20:31)
[2020-06-20] MEDS: ISOSORBIDE MONONITRATE 60 MG ER TABLET PO SCH (08:09)
[2020-06-20] MEDS: GABAPENTIN 300 MG CAPSULE PO SCH ×3 (08:09→20:31)
[2020-06-20 11:12] VITALS: BP 104/44
[2020-06-20] MEDS: SOD FERRIC GLUC COMPLX/SUCROSE 125 MG in SODIUM CHLORIDE 0.9% 100 ML IV SCH (13:58)
[2020-06-20] MEDS: ONDANSETRON HCL 4 MG/2 ML VIAL IVP PRN (14:53)
[2020-06-20] MEDS: LACTULOSE 20 GM/30 ML SOLUTION UDCUP PO PRN (15:19)
[2020-06-20 15:20] VITALS: BP 110/44
[2020-06-20 19:35] VITALS: BP 112/60
[2020-06-20] MEDS: ATORVASTATIN CALCIUM 20 MG TABLET PO SCH (20:30)
[2020-06-20 23:05] VITALS: BP 113/50
[2020-06-21] MEDS: MORPHINE SULFATE 2 MG/ML SYRINGE IVP PRN ×3 (03:30→20:03)
[2020-06-21 04:00] VITALS: BP 119/59
[2020-06-21] MEDS: LEVOTHYROXINE SODIUM 150 MCG TABLET PO SCH (06:36)
[2020-06-21] MEDS: PANTOPRAZOLE SODIUM 40 MG DR TABLET PO SCH (06:36)
[2020-06-21 06:41] LABS: BASOPHILS % (AUTO) 0.8 % (0.0-2.0); EOSINOPHILS % (AUTO) 4.6 % (1.0-6.0); HEMATOCRIT 22.4 % (36-46); HEMOGLOBIN 7.2 g/dL (12.0-16.0); LYMPHOCYTES # (AUTO) 1.1 K/uL (1.0-4.8); LYMPHOCYTES % (AUTO) 14.7 % (22.0-44.0); MEAN CORPUSCULAR HEMOGLOBIN 28.9 pg (26.0-34.0); MEAN CORPUSCULAR HGB CONC 32.3 G/dL (31.0-37.0); MEAN CORPUSCULAR VOLUME 90 fL (80-100); MONOCYTES # (AUTO) 0.5 K/uL (0.1-1.0); MONOCYTES % (AUTO) 7.2 % (2.0-9.0); NEUTROPHILS # (AUTO) 5.3 K/uL (1.8-7.7); NEUTROPHILS % (AUTO) 72.7 % (40.0-70.0); PLATELET COUNT (AUTO) 219 K/uL (150-450); RED CELL DISTRIBUTION WIDTH 19.1 % (11.5-14.5)
[2020-06-21 06:42] LABS: CALCIUM, TOTAL 8.4 mg/dL (8.8-10.5); CREATININE 3.72 mg/dL (0.60-1.30)
[2020-06-21 07:12] VITALS: BP 114/57
[2020-06-21] MEDS: ESCITALOPRAM OXALATE 20 MG TABLET PO SCH (08:01)
[2020-06-21] MEDS: ASPIRIN 81 MG EC TABLET PO SCH (08:01)
[2020-06-21] MEDS: HEPARIN SODIUM,PORCINE 5,000 UNITS/ML VIAL SQ SCH ×3 (08:01→23:46)
[2020-06-21] MEDS: ASCORBIC ACID 500 MG TABLET PO SCH (08:01)
[2020-06-21] MEDS: ISOSORBIDE MONONITRATE 60 MG ER TABLET PO SCH (08:01)
[2020-06-21] MEDS: RANOLAZINE 500 MG ER TABLET PO SCH ×2 (08:01→20:08)
[2020-06-21] MEDS: GABAPENTIN 300 MG CAPSULE PO SCH ×3 (08:01→20:08)
[2020-06-21] MEDS: DOCUSATE SODIUM 100 MG CAPSULE PO SCH ×2 (08:05→20:08)
[2020-06-21] MEDS: VANCOMYCIN HCL 1 GM/D5% WATER 200 ML IV SCH (08:05)
[2020-06-21] MEDS: LACTULOSE 20 GM/30 ML SOLUTION UDCUP PO PRN (08:05)
[2020-06-21] MEDS: CARVEDILOL 6.25 MG TABLET PO SCH ×2 (08:51→20:08)
[2020-06-21] MEDS ORDERED: SODIUM CHLORIDE 0.9% 250 ML IV ONE (10:38)
[2020-06-21 11:08] VITALS: BP 112/44
[2020-06-21] MEDS: SOD FERRIC GLUC COMPLX/SUCROSE 125 MG in SODIUM CHLORIDE 0.9% 100 ML IV SCH (13:41)
[2020-06-21 15:21] VITALS: BP 106/44
[2020-06-21 15:45] LABS: INR 1.2 (0.9-1.1); PROTHROMBIN TIME 12.1 SEC (9.4-11.6)
[2020-06-21 20:01] VITALS: BP 146/58
[2020-06-21] MEDS: MUPIROCIN CALCIUM 2% 22 GM OINTMENT NASAL SCH (20:08)
[2020-06-21] MEDS: ATORVASTATIN CALCIUM 20 MG TABLET PO SCH (20:08)
[2020-06-21 23:43] VITALS: BP 132/59
[2020-06-22 04:00] VITALS: BP 127/62
[2020-06-22] MEDS: PANTOPRAZOLE SODIUM 40 MG DR TABLET PO SCH (06:06)
[2020-06-22] MEDS: LEVOTHYROXINE SODIUM 150 MCG TABLET PO SCH (06:06)
[2020-06-22 06:21] LABS: BASOPHILS % (AUTO) 1.2 % (0.0-2.0); CALCIUM, TOTAL 8.9 mg/dL (8.8-10.5); CREATININE 3.74 mg/dL (0.60-1.30); EOSINOPHILS % (AUTO) 4.2 % (1.0-6.0); HEMATOCRIT 23.9 % (36-46); LYMPHOCYTES # (AUTO) 0.9 K/uL (1.0-4.8); LYMPHOCYTES % (AUTO) 12.6 % (22.0-44.0); MEAN CORPUSCULAR HEMOGLOBIN 30.1 pg (26.0-34.0); MEAN CORPUSCULAR HGB CONC 33.2 G/dL (31.0-37.0); MEAN CORPUSCULAR VOLUME 91 fL (80-100); MONOCYTES # (AUTO) 0.6 K/uL (0.1-1.0); MONOCYTES % (AUTO) 9.1 % (2.0-9.0); NEUTROPHILS # (AUTO) 5.1 K/uL (1.8-7.7); NEUTROPHILS % (AUTO) 72.9 % (40.0-70.0); PLATELET COUNT (AUTO) 232 K/uL (150-450); POTASSIUM 4.8 mmol/L (3.5-5.1); RED BLOOD CELL COUNT(AUTO) 2.64 MIL/uL (4.00-5.20); RED CELL DISTRIBUTION WIDTH 19.1 % (11.5-14.5)
[2020-06-22] MEDS: ASCORBIC ACID 500 MG TABLET PO SCH (07:59)
[2020-06-22] MEDS: ASPIRIN 81 MG EC TABLET PO SCH (07:59)
[2020-06-22] MEDS: GABAPENTIN 300 MG CAPSULE PO SCH ×3 (07:59→21:49)
[2020-06-22] MEDS: CARVEDILOL 6.25 MG TABLET PO SCH ×2 (07:59→21:49)
[2020-06-22] MEDS: ESCITALOPRAM OXALATE 20 MG TABLET PO SCH (07:59)
[2020-06-22] MEDS: RANOLAZINE 500 MG ER TABLET PO SCH ×2 (07:59→21:48)
[2020-06-22] MEDS: ISOSORBIDE MONONITRATE 60 MG ER TABLET PO SCH (07:59)
[2020-06-22] MEDS: HEPARIN SODIUM,PORCINE 5,000 UNITS/ML VIAL SQ SCH ×2 (08:00→16:00)
[2020-06-22] MEDS: MORPHINE SULFATE 2 MG/ML SYRINGE IVP PRN ×3 (08:00→22:51)
[2020-06-22] MEDS: DOCUSATE SODIUM 100 MG CAPSULE PO SCH ×2 (08:07→21:48)
[2020-06-22 08:09] VITALS: BP 151/65
[2020-06-22] MEDS: CHLORHEXIDINE GLUCONATE 4% 118 ML TOPICAL LIQUID TP SCH (09:00)
[2020-06-22] MEDS: MUPIROCIN CALCIUM 2% 22 GM OINTMENT NASAL SCH ×2 (10:32→21:48)
[2020-06-22] MEDS ORDERED: KETAMINE HCL 50 MG/ML 10 ML VIAL IVP ONE (12:00)
[2020-06-22] MEDS ORDERED: PHENYLEPHRINE HCL 10 MG/ML VIAL IVP ONE (12:00)
[2020-06-22] MEDS ORDERED: PROPOFOL 1% 20 ML VIAL IVP ONE (12:00)
[2020-06-22] MEDS ORDERED: 0.9% SODIUM CHLORIDE 10 ML VIAL IVP ONE (12:00)
[2020-06-22] MEDS ORDERED: HEPARIN SODIUM,PORCINE 1,000 UNITS/ML 10 ML VIAL IVP ONE (12:00)
[2020-06-22] MEDS ORDERED: FentaNYL CITRATE-PF 100 MCG/2 ML VIAL IVP ONE (12:00)
[2020-06-22] MEDS ORDERED: MIDAZOLAM HCL 2 MG/2 ML VIAL IVP ONE (12:00)
[2020-06-22] MEDS ORDERED: ONDANSETRON HCL 4 MG/2 ML VIAL IVP ONE (12:00)
[2020-06-22] MEDS: SOD FERRIC GLUC COMPLX/SUCROSE 125 MG in SODIUM CHLORIDE 0.9% 100 ML IV SCH (12:58)
[2020-06-22 13:03] VITALS: BP 139/63
[2020-06-22] MEDS ORDERED: BACITRACIN 50,000 UNITS/VIAL ONE (13:42)
[2020-06-22] MEDS ORDERED: SODIUM CHLORIDE 0.9% 10 ML ONE (13:42)
[2020-06-22] MEDS ORDERED: HEPARIN SODIUM,PORCINE 5,000 UNITS/ML VIAL ONE (13:42)
[2020-06-22] MEDS ORDERED: LIDOCAINE/PF 1% 30 ML VIAL ONE (13:42)
[2020-06-22] MEDS ORDERED: HYDROmorphone 2 MG/ML SYRINGE IVP PRN (14:15)
[2020-06-22] MEDS ORDERED: FentaNYL CITRATE-PF 100 MCG/2 ML VIAL IVP PRN (14:15)
[2020-06-22] MEDS ORDERED: RINGERS SOLUTION,LACTATED 0 ML IV ONE (14:39)
[2020-06-22] MEDS ORDERED: SODIUM CHLORIDE 0.9% 1,000 ML ONE (14:39)
[2020-06-22] MEDS ORDERED: PROTAMINE SULFATE 10 MG/ML 5 ML VIAL ONE (17:03)
[2020-06-22] MEDS ORDERED: OxyCODONE HCL 5 MG IR TABLET PO PRN (17:30)
[2020-06-22 19:52] VITALS: BP 110/50
[2020-06-22] MEDS: OXYGEN THERAPY IH SCH (20:00)
[2020-06-22] MEDS: ATORVASTATIN CALCIUM 20 MG TABLET PO SCH (21:49)
[2020-06-22 23:19] VITALS: BP 136/67
[2020-06-22] MEDS ORDERED: BISACODYL 10 MG RECTAL RECTAL SUPPOSITORY PR PRN (23:45)
[2020-06-23] MEDS: MORPHINE SULFATE 2 MG/ML SYRINGE IVP PRN ×3 (03:03→14:38)
[2020-06-23 04:25] VITALS: BP 128/75
[2020-06-23] MEDS: PANTOPRAZOLE SODIUM 40 MG DR TABLET PO SCH (06:01)
[2020-06-23] MEDS: LEVOTHYROXINE SODIUM 150 MCG TABLET PO SCH (06:01)
[2020-06-23 07:15] LABS: EOSINOPHILS % (AUTO) 4.6 % (1.0-6.0); HEMATOCRIT 24.2 % (36-46); HEMOGLOBIN 7.6 g/dL (12.0-16.0); LYMPHOCYTES # (AUTO) 0.7 K/uL (1.0-4.8); LYMPHOCYTES % (AUTO) 10.2 % (22.0-44.0); MEAN CORPUSCULAR HGB CONC 31.6 G/dL (31.0-37.0); MEAN CORPUSCULAR VOLUME 92 fL (80-100); MONOCYTES # (AUTO) 0.5 K/uL (0.1-1.0); MONOCYTES % (AUTO) 7.5 % (2.0-9.0); NEUTROPHILS # (AUTO) 5.4 K/uL (1.8-7.7); NEUTROPHILS % (AUTO) 76.7 % (40.0-70.0); PLATELET COUNT (AUTO) 245 K/uL (150-450); RED BLOOD CELL COUNT(AUTO) 2.64 MIL/uL (4.00-5.20); RED CELL DISTRIBUTION WIDTH 19.2 % (11.5-14.5)
[2020-06-23 07:39] LABS: CALCIUM, TOTAL 9.1 mg/dL (8.8-10.5); CREATININE 3.51 mg/dL (0.60-1.30); POTASSIUM 4.7 mmol/L (3.5-5.1); VANCOMYCIN,RANDOM 18.2 mcg/mL (25.0-50.0)
[2020-06-23] MEDS: OXYGEN THERAPY IH SCH (08:00)
[2020-06-23] MEDS: GABAPENTIN 300 MG CAPSULE PO SCH (08:04)
[2020-06-23] MEDS: RANOLAZINE 500 MG ER TABLET PO SCH (08:04)
[2020-06-23] MEDS: ISOSORBIDE MONONITRATE 60 MG ER TABLET PO SCH (08:05)
[2020-06-23] MEDS: ASCORBIC ACID 500 MG TABLET PO SCH (08:05)
[2020-06-23] MEDS: ESCITALOPRAM OXALATE 20 MG TABLET PO SCH (08:05)
[2020-06-23] MEDS: ASPIRIN 81 MG EC TABLET PO SCH (08:05)
[2020-06-23] MEDS: HEPARIN SODIUM,PORCINE 5,000 UNITS/ML VIAL SQ SCH ×2 (08:05)
[2020-06-23] MEDS: DOCUSATE SODIUM 100 MG CAPSULE PO SCH (08:05)
[2020-06-23] MEDS: MUPIROCIN CALCIUM 2% 22 GM OINTMENT NASAL SCH (08:06)
[2020-06-23] MEDS: VANCOMYCIN HCL 1 GM/D5% WATER 200 ML IV SCH (08:06)
[2020-06-23] MEDS: CHLORHEXIDINE GLUCONATE 4% 118 ML TOPICAL LIQUID TP SCH (08:07)
[2020-06-23 08:12] VITALS: BP 127/54
[2020-06-23] MEDS: SOD FERRIC GLUC COMPLX/SUCROSE 125 MG in SODIUM CHLORIDE 0.9% 100 ML IV SCH (12:34)
== END 2020-06-23 15:00 | DRG 673 ==
LOC: EMS 00:31 → 5S 02:50 → UNDOADMIN 02:50 → 5N 03:41 → 5S 05:49 → 5N 21:30 → 5S 06-11 10:03 → 4E 06-11 18:50 → 6S 06-13 17:15
PROVIDERS: ADMIT Internal Medicine; ATTEND Internal Medicine
PROC: 031C3ZF Bypass Left Radial Artery to Lower Arm Vein, Percutaneous Approach (ICD-10-PCS; principal; 2020-06-22 14:30)
DX: N17.9 Acute kidney failure, unspecified (principal); E43 Unspecified severe protein-calorie malnutrition; I13.2 Hypertensive heart and chronic kidney disease with heart failure and with stage 5 chronic kidney disease, or end stage renal disease; I50.20 Unspecified systolic (congestive) heart failure; N18.6 End stage renal disease; J44.9 Chronic obstructive pulmonary disease, unspecified; E78.5 Hyperlipidemia, unspecified; E11.22 Type 2 diabetes mellitus with diabetic chronic kidney disease; E78.00 Pure hypercholesterolemia, unspecified; E03.9 Hypothyroidism, unspecified; Z95.1 Presence of aortocoronary bypass graft; Z87.442 Personal history of urinary calculi; Z86.73 Personal history of transient ischemic attack (TIA), and cerebral infarction without residual deficits; Z82.3 Family history of stroke; Z79.4 Long term (current) use of insulin; D63.1 Anemia in chronic kidney disease; I25.5 Ischemic cardiomyopathy; B95.62 Methicillin resistant Staphylococcus aureus infection as the cause of diseases classified elsewhere; Z68.29 Body mass index [BMI] 29.0-29.9, adult; I25.10 Atherosclerotic heart disease of native coronary artery without angina pectoris; R13.10 Dysphagia, unspecified; Z87.11 Personal history of peptic ulcer disease; Z82.49 Family history of ischemic heart disease and other diseases of the circulatory system; F12.90 Cannabis use, unspecified, uncomplicated; Z88.8 Allergy status to other drugs, medicaments and biological substances; I48.0 Paroxysmal atrial fibrillation; E87.5 Hyperkalemia; Z79.899 Other long term (current) drug therapy; N32.0 Bladder-neck obstruction; E66.9 Obesity, unspecified; Z95.0 Presence of cardiac pacemaker; I25.2 Old myocardial infarction; F43.10 Post-traumatic stress disorder, unspecified; Z20.828 Contact with and (suspected) exposure to other viral communicable diseases
CPT/HCPCS: 76770; 82306; 83036; 83540; 83550; 83735; 83970; 84100; 87040; 87081; 87086; 87426; 93005; 93306; 93970; 97162; 97530; G0378; J0690; J0696; J0885; J1644; J2250; J2270; J2370; J2405; J2704; J2720; J2916; J3010; J3370; J3490; J7030; J7050; J7060; J7120; 36415-L1; 36415-TC; 71045-TC; 80061-TC; 80202-TC; U0003-CS

== ENCOUNTER 2020-06-27 18:53 | Emergency (ER) | payer MEDICARE, OTHER ==
[~2020-06-27] VITALS: Ht 167.6 cm; Wt 105.0 kg
[~2020-06-27 18:53] MED LIST changes: -ATOR20TA65 PO; +ATOR20TA86 PO
[2020-06-27] MEDS ORDERED: DEXTROSE 50%-WATER 25 GM/50 ML SYRINGE IVP ONE (19:15)
[2020-06-27 19:28] LABS: COVID AG,FIA SOURCE NASAL SWAB
[2020-06-27 19:43] LABS: CALCIUM, TOTAL 8.8 mg/dL (8.8-10.5); CREATININE 4.38 mg/dL (0.60-1.30)
[2020-06-27 19:49] LABS: ALBUMIN 2.1 g/dL (3.4-5.0); BASOPHILS % (AUTO) 0.2 % (0.0-2.0); BILIRUBIN,TOTAL 0.3 mg/dL (0.1-1.0); EOSINOPHILS % (AUTO) 2.7 % (1.0-6.0); HEMATOCRIT 27.3 % (36-46); HEMOGLOBIN 8.5 g/dL (12.0-16.0); LYMPHOCYTES # (AUTO) 0.5 K/uL (1.0-4.8); MEAN CORPUSCULAR HEMOGLOBIN 29.1 pg (26.0-34.0); MEAN CORPUSCULAR HGB CONC 31.1 G/dL (31.0-37.0); MEAN CORPUSCULAR VOLUME 94 fL (80-100); MONOCYTES # (AUTO) 0.3 K/uL (0.1-1.0); MONOCYTES % (AUTO) 2.8 % (2.0-9.0); NEUTROPHILS # (AUTO) 8.8 K/uL (1.8-7.7); PLATELET COUNT (AUTO) 236 K/uL (150-450); RED BLOOD CELL COUNT(AUTO) 2.92 MIL/uL (4.00-5.20); RED CELL DISTRIBUTION WIDTH 20.9 % (11.5-14.5)
[2020-06-27 19:50] LABS: NEUTROPHILS % (AUTO) 89.3 % (40.0-70.0)
[2020-06-27 19:51] LABS: LACTIC ACID 0.7 mmol/L (0.4-2.0)
[2020-06-27] MEDS ORDERED: EPOE20002 SQ (19:51)
[2020-06-27 20:06] LABS: INFLUENZA TYPE A NEGATIVE FOR TYPE A (NEGATIVE); INFLUENZA TYPE B NEGATIVE FOR TYPE B (NEGATIVE)
[2020-06-27] MEDS ORDERED: VANC250C6 IV (20:09)
[2020-06-27] MEDS ORDERED: CHOL125C2 PO (20:09)
[2020-06-27] MEDS ORDERED: BISA10SU11 PR (20:20)
[2020-06-27] MEDS ORDERED: MORP10CA11 PO (20:20)
[2020-06-27] MEDS ORDERED: ACET-2865 PO (20:20)
[2020-06-27] MEDS ORDERED: DOCU-275 PO (20:20)
[2020-06-27 20:48] LABS: GLUCOSE,POINT OF CARE 220 MG/DL (70-110)
[2020-06-27 22:37] LABS: GLUCOSE,POINT OF CARE 213 MG/DL (70-110)
[2020-06-27 23:05] VITALS: BP 117/55
== END 2020-06-27 23:40 | disposition home or self-care (01) ==
LOC: EMS 18:57
DX: E11.649 Type 2 diabetes mellitus with hypoglycemia without coma (principal); E78.00 Pure hypercholesterolemia, unspecified; I11.0 Hypertensive heart disease with heart failure; I50.9 Heart failure, unspecified; I25.10 Atherosclerotic heart disease of native coronary artery without angina pectoris; J44.9 Chronic obstructive pulmonary disease, unspecified; F12.90 Cannabis use, unspecified, uncomplicated; Z88.8 Allergy status to other drugs, medicaments and biological substances; Z91.018 Allergy to other foods; Z79.4 Long term (current) use of insulin; Z79.899 Other long term (current) drug therapy; Z20.828 Contact with and (suspected) exposure to other viral communicable diseases
CPT/HCPCS: 36415; 71045; 80053; 82948; 82962; 83605; 83880; 84484; 85025; 87426; 87804; 93005; 96374; 99285; U0003